=== PATIENT | female | born 1985 | race Caucasian/White ===

== ENCOUNTER 2019-04-25 14:20 | Inpatient (IN) ==
[2019-04-25] MEDS ORDERED: IOPAMIDOL 100 ML BOTTLE IV ONE (14:21)
[2019-04-25] MEDS ORDERED: 0.9 % SODIUM CHLORIDE 1,000 ML IV ONE (14:22)
--- NOTE | 2019-04-25 14:50 | Emergency Department Note ---
Abdominal Pain HPI - General Chief Complaint: Abdominal Pain Stated Complaint: Abdominal Time Seen by Provider: 04/25/19 14:21 Mode of arrival: ambulatory - History of Present Illness HPI Narrative: Patient is a 33-year-old female that presents to the emergency department with complaint of right lower quadrant abdominal pain that occurred yesterday at 1900 when she was at work. She reports that the pain came on suddenly and she describes this pain as sharp. She has increased pain with ambulation. Last night after the pain began she developed a fever of 101.9. She reports that her pulse was 115 and blood pressure is 96/69. She took a dose of Maalox and milk of magnesia last night, but reports that this did not help with anything. She reports her last bowel movement was 2 days ago and was soft and brown. She does have some slight nausea but has not had any vomiting. She does not have any shortness of breath, chest pain, or difficulty breathing. She was seen earlier today by minor care and a urinalysis was done and apparently this was normal. - Related Data Home Medications Medication Instructions Recorded Confirmed levothyroxine 50 mcg capsule 50 mcg PO QDAY 10/18/18 04/25/19 etodolac 400 mg tablet 400 mg PO Q8HP PRN tab 04/25/19 04/25/19 Allergies Allergy/AdvReac Type Severity Reaction Status Date / Time cephalexin Allergy Intermediate rash Verified 04/25/19 13:36 penicillin G Allergy Intermediate Hives Verified 04/25/19 13:36 Review of Systems All systems ED: reviewed and negative except as stated. Abdominal Pain PMH - Past Medical History Medical history: Reports: no medical history - Social History Smoking status: Former smoker Alcohol use: Reports: Unknown Drug use: Reports: unknown Physical Exam Limitations: no limitations General appearance: alert, in no apparent distress Head: atraumatic, normocephalic Eye: Present: normal appearance, PERRL ENT: Present: normal oropharynx, mucous membranes moist Neck: Present: normal inspection, full ROM Respiratory: Present: normal lung sounds bilaterally. Absent: respiratory distress, rales/crackles, wheezes, stridor, accessory muscle use, prolonged expiratory phase Cardiovascular: Present: regular rate, normal rhythm. Absent: systolic murmur, diastolic murmur Abdominal: Present: soft, tenderness (right lower quadrant and left lower quadrant), rebound, normal bowel sounds, tenderness at [place]Bur[place]'s Point. Absent: distention, guarding, rigidity, psoas sign, obturator sign, pulsatile mass Abdominal tenderness: Present: RLQ, LLQ, moderate Extremities: Present: normal inspection, full ROM, normal capillary refill. Absent: tenderness, pedal edema, pretibial edema, calf tenderness Back: Present: normal inspection, full ROM. Absent: CVA tenderness (R), CVA tenderness (L) Neurological: Present: alert, oriented X3 Skin: Present: warm, dry, intact, normal color Course - Reevaluation(s) Time: 15:07 (hCG testing was negative. Normal creatinine level. Proceeding with CT scan of the abdomen and pelvis with contrast for further evaluation. Patient is resting comfortably and receiving IV fluids at this time.) Time: 16:03 (spoke with Dr. Angeles over the phone about CT report and the leukocytosis along with the assessment findings. Dr. Angeles would like to have the patient admitted and he will see her on the floor.) Vital Signs Temperature 98.4 F 04/25/19 14:20 Pulse Rate 86 04/25/19 14:20 Respiratory Rate 16 04/25/19 14:20 Blood Pressure 127/84 04/25/19 14:20 Pulse Oximetry (%) 99 04/25/19 14:20 Temperature 98.4 F 04/25/19 14:20 Pulse Rate 86 04/25/19 14:20 Respiratory Rate 20 04/25/19 15:16 Blood Pressure 130/87 04/25/19 15:16 Pulse Oximetry (%) 99 04/25/19 14:20 Abdominal Pain - [facility] Narrative Medical decision making narrative: Patient has leukocytosis with white count of 14.3. She was given 1 L of normal saline here in the emergency department. CT scan of the abdomen and pelvis was completed that shows cecal diverticulitis. Called and spoke with Dr. Angeles who is inhalation therapy teacher and Dr. Angeles accepts the patient to be admitted and he will see the patient for. She was given a dose of morphine here in the emergency department for pain and will be given Levaquin 750 mg IV and ordered metronidazole 500 mg IV. Patient will be admitted to [facility]. - Lab Data Result diagrams: 04/25/19 14:42 04/25/19 14:42 Lab Results 04/25/19 04/25/19 Range/Units 14:42 14:42 WBC 14.3 H (4.5-11.0) K/mcL RBC 4.32 (4.00-5.20) M/mcL Hgb 13.3 (12.0-15.0) g/dL Hct 38.9 (36.0-48.0) % POC Hct 36.0 (36.0-48.0) % MCV 90.0 (80.0-100.0) fL MCH 30.8 (26.0-34.0) pg MCHC 34.2 (31.0-36.0) g/dL RDW 11.5 (11.5-14.5) % Plt Count 304 (140-440) K/mcL MPV 6.5 L (7.4-10.4) fL Gran % 80.1 H (38.0-78.0) % Lymph % (Auto) 14.2 L (15.5-49.0) % [place]roy[place] % (Auto) 5.5 (1.0-12.0) % Eos % (Auto) 0.1 (0.0-7.0) % Baso % (Auto) 0.1 (0.0-2.0) % Gran # 11.5 H (1.8-8.0) K/mcL Lymph # (Auto) 2.0 (1.5-4.8) K/mcL [place] # (Auto) 0.8 (0.1-0.9) K/mcL Eos # (Auto) 0 (0.0-0.7) K/mcL Baso # (Auto) 0 (0.0-0.3) K/mcL ESR 10 (0-20) mm/hr POC Sodium 137 (133-145) mmol/L Sodium 137 (133-145) mmol/L POC Potassium 4.0 (3.3-5.1) mmol/L Potassium 4.1 (3.3-5.1) mmol/L POC Chloride 103 (96-108) mmol/L Chloride 100 (96-108) mmol/L Carbon Dioxide 25 (22-30) mmol/L POC Total CO2 25 (22-30) mmol/L Anion Gap 12.0 (8-16) POC BUN 11 (6-20) mg/dl BUN 12 (6-20) mg/dl Creatinine 0.8 (0.6-1.1) mg/dl POC Creatinine 0.9 (0.6-1.1) mg/dl GFR Calculation 96 Glucose 97 (70-105) mg/dL POC Glucose 96 (70-105) mg/dL Calcium 9.5 (8.6-10.4) mg/dl POC WB Ioniz Calcium 1.16 (1.16-1.32) mmol/L Total Bilirubin 0.8 (0.0-1.0) mg/dL AST 17 (0-37) U/l ALT 21 (0-40) U/l Alkaline Phosphatase 64 (39-117) U/L Total Protein 7.2 (5.9-8.4) gm/dL Albumin 4.5 (3.2-5.2) gm/dL Globulin 2.7 (2.2-3.7) gm/dL Albumin/Globulin Ratio 1.7 (1.0-2.3) Lipase 10 (7-60) U/L - Radiology Data Ordering Physician: Aryan Lea Date of Service: 04/25/19 Procedure(s): CT abdomen pelvis w con Accession Number(s): [id number] CLINICAL INFORMATION: Right lower quadrant pain. Fever TECHNIQUE: Axial images through the abdomen and pelvis. Intravenous contrast material was administered. Oral contrast material was not given COMPARISON: None. FINDINGS: Appendix, colon: Appendix is normal. Appendix measures 6 mm in cross-sectional diameter. There is no appendiceal enlargement. No evidence for appendicitis. There is no appendicolith. There is inflammatory change surrounding the cecum and proximal ascending colon. There is a focal density consistent with a cecal diverticulum. This appearance is consistent with cecal diverticulitis. There is no focal abscess. There is no pneumoperitoneum. No pathologic adenopathy. There is no free pelvic fluid. Colon is otherwise negative. Transverse colon, descending colon, sigmoid colon, rectum are negative. No significant diverticulosis. Lung bases: Lung bases are negative. No focal infiltrate. No pleural fluid. There is no pericardial fluid. Liver: Negative. No significant abnormality. No evidence for cirrhosis. No intra-abdominal abscess. There is a single 5 mm low-density abnormality in the left lobe of the liver. This is probably a benign cyst. Gallbladder, biliary colon probable noncalcified gallstones. No gallbladder wall thickening. No pericholecystic fluid. No dilated bile ducts. Spleen: Negative. No splenomegaly. Normal enhancement splenic portal veins. Pancreas: Negative. No pancreatitis. No pancreatic mass. No pancreatic duct dilatation Adrenal glands: Negative Kidneys, ureters, bladder: Kidneys are negative. No solid or cystic mass. There is no hydronephrosis. No hydroureter. No obstructing or nonobstructing calculi. There are no bladder stones. Stomach and small bowel: No mechanical small bowel obstruction. Stomach and duodenum are negative. Vascular: No abdominal aortic aneurysm. Celiac trunk and superior mesenteric artery are normal. Inferior mesenteric artery is normally opacified Lymphatic: No retroperitoneal adenopathy. No mesenteric adenopathy. Reproductive: Uterus is anteflexed. There is a probable 3.5 cm right ovarian or adnexal cyst. This appears septated. Follow-up ultrasound recommended. Mesenteric, peritoneal: No free intraperitoneal fluid. No pneumoperitoneum. No biliary or portal venous gas. No pneumatosis. There is no intra-abdominal abscess Musculoskeletal: Normal lumbar spine. Sacrum and pelvis are negative. Hips are negative. IMPRESSION: 1. Negative appendix 2. Findings consistent with cecal diverticulitis Interpreted and Authenticated by: Joseph Jung 04/25/19 Disposition Pt seen by CAMPUS COORDINATOR/PA only: Yes Clinical Impression: Cecal diverticulitis Disposition: Xfer As Inpt ([facility]) Condition: Fair Referrals: Riley oRth ARNP [Primary Care Provider] -
[2019-04-25 14:54] LABS: POC Blood Urea Nitrogen 11 mg/dl (6-20); POC CO2 25 mmol/L (22-30); POC Calcium, Ionized 1.16 mmol/L (1.16-1.32); POC Chloride 103 mmol/L (96-108); POC Creatinine 0.9 mg/dl (0.6-1.1); POC Glucose, Random 96 mg/dL (70-105); POC Sodium 137 mmol/L (133-145)
[2019-04-25 15:19] LABS: Basophils # (Auto) 0 K/mcL (0.0-0.3); Basophils % (Auto) 0.1 % (0.0-2.0); Eosinophils # (Auto) 0 K/mcL (0.0-0.7); Eosinophils % (Auto) 0.1 % (0.0-7.0); Granulocytes % (Auto) 80.1 % (38.0-78.0); Hematocrit 38.9 % (36.0-48.0); Hemoglobin 13.3 g/dL (12.0-15.0); Lymphocytes % (Auto) 14.2 % (15.5-49.0); Mean Corpuscular HGB Conc 34.2 g/dL (31.0-36.0); Mean Platelet Volume 6.5 fL (7.4-10.4); Monocytes # (Auto) 0.8 K/mcL (0.1-0.9); Monocytes % (Auto) 5.5 % (1.0-12.0); Platelet Count 304 K/mcL (140-440); RBC 4.32 M/mcL (4.00-5.20); Red Cell Distribution Width 11.5 % (11.5-14.5); WBC 14.3 K/mcL (4.5-11.0)
[2019-04-25 15:32] LABS: ALT/SGPT 21 U/l (0-40); AST/SGOT 17 U/l (0-37); Albumin 4.5 gm/dL (3.2-5.2); Albumin/Globulin Ratio 1.7 (1.0-2.3); Alkaline Phosphatase 64 U/L (39-117); Bilirubin,Total 0.8 mg/dL (0.0-1.0); Blood Urea Nitrogen 12 mg/dl (6-20); Calcium 9.5 mg/dl (8.6-10.4); Carbon Dioxide 25 mmol/L (22-30); Chloride 100 mmol/L (96-108); Globulin 2.7 gm/dL (2.2-3.7); Glomerular Filtration Rate 96; Glucose 97 mg/dL (70-105)
[2019-04-25 15:47] LABS: Erythrocyte Sedimentation Rate 10 mm/hr (0-20)
--- NOTE | 2019-04-25 15:49 | Cat Scan Report ---
CLINICAL INFORMATION: Right lower quadrant pain. Fever TECHNIQUE: Axial images through the abdomen and pelvis. Intravenous contrast material was administered. Oral contrast material was not given COMPARISON: None. FINDINGS: Appendix, colon: Appendix is normal. Appendix measures 6 mm in cross-sectional diameter. There is no appendiceal enlargement. No evidence for appendicitis. There is no appendicolith. There is inflammatory change surrounding the cecum and proximal ascending colon. There is a focal density consistent with a cecal diverticulum. This appearance is consistent with cecal diverticulitis. There is no focal abscess. There is no pneumoperitoneum. No pathologic adenopathy. There is no free pelvic fluid. Colon is otherwise negative. Transverse colon, descending colon, sigmoid colon, rectum are negative. No significant diverticulosis. Lung bases: Lung bases are negative. No focal infiltrate. No pleural fluid. There is no pericardial fluid. Liver: Negative. No significant abnormality. No evidence for cirrhosis. No intra-abdominal abscess. There is a single 5 mm low-density abnormality in the left lobe of the liver. This is probably a benign cyst. Gallbladder, biliary colon probable noncalcified gallstones. No gallbladder wall thickening. No pericholecystic fluid. No dilated bile ducts. Spleen: Negative. No splenomegaly. Normal enhancement splenic portal veins. Pancreas: Negative. No pancreatitis. No pancreatic mass. No pancreatic duct dilatation Adrenal glands: Negative Kidneys, ureters, bladder: Kidneys are negative. No solid or cystic mass. There is no hydronephrosis. No hydroureter. No obstructing or nonobstructing calculi. There are no bladder stones. Stomach and small bowel: No mechanical small bowel obstruction. Stomach and duodenum are negative. Vascular: No abdominal aortic aneurysm. Celiac trunk and superior mesenteric artery are normal. Inferior mesenteric artery is normally opacified Lymphatic: No retroperitoneal adenopathy. No mesenteric adenopathy. Reproductive: Uterus is anteflexed. There is a probable 3.5 cm right ovarian or adnexal cyst. This appears septated. Follow-up ultrasound recommended. Mesenteric, peritoneal: No free intraperitoneal fluid. No pneumoperitoneum. No biliary or portal venous gas. No pneumatosis. There is no intra-abdominal abscess Musculoskeletal: Normal lumbar spine. Sacrum and pelvis are negative. Hips are negative. IMPRESSION: 1. Negative appendix 2. Findings consistent with cecal diverticulitis Interpreted and Authenticated by: Joseph Jung 04/25/19
[2019-04-25] MEDS ORDERED: metroNIDAZOLE 500 MG/100 ML BAG IV ONE (16:13)
[2019-04-25] MEDS ORDERED: LEVOFLOXACIN 750 MG/150 ML BAG IV ONE (16:13)
[2019-04-25] MEDS ORDERED: LEVOFLOXACIN 750 MG/150 ML BAG IV SCH (16:15)
[2019-04-25] MEDS: 0.9 % SODIUM CHLORIDE 1,000 ML IV SCH ×2 (17:47→21:02)
--- NOTE | 2019-04-25 18:59 | General Surg History&Physical ---
History of Present Illness Patient information: Note initiated : 04/25/19 at 6:56 pm Service Date, if different from initiated Date: [] Patient: Aletha Landry 33 y/o F admitted on 04/25/19 for Abdominal. Chief Complaint: [] HPI: Ms. Landry is a 33 year old F admitted with acute abdominal pain and probable right sided diverticulitis. The patient had onset of severe abdominal pain about 1900 hrs. YESTERDAY. IT WAS PRIMARILY ON THE RIGHT SIDE. AND THE SUPRAPUBIC AREA AND LEFT LOWER QUADRANT. SHE HAD NAUSEA WITH VOMITING. STATES THAT SHE NOTED THAT HER HEART RATE WAS UP AND HER TEMPERATURE WAS 101.9. SHE TRIED SOME [id number] MEDICATIONS, WHICH DID NOT IMPROVE AND FINALLY CAME TO [facility] EARLIER TODAY. BECAUSE OF HER HISTORY, SHE WAS TRANSFERRED TO THE EMERGENCY ROOM WHERE CT OF THE ABDOMEN WAS DONE. IT SHOWS A NORMAL SIZE APPENDIX, WHICH IS CLEARLY DEFINED WITH AIR IN THE APPENDIX. SHE HOWEVER HAS THICKENING OF THE CECUM AND ASCENDING COLON SUGGESTIVE OF CECAL DIVERTICULITIS. Patient has been admitted and started on IV antibiotics. Review of Systems All systems PM: reviewed and no additional remarkable complaints except as stated (negative except as noted in HPI and below) - EENT Nose, mouth and throat: neck pain Past History Past medical history: Hypothyroidism Past surgical history: 1. Breast augmentation. Abdominoplasty Past family history: Mother age 57, alive and well. Father age 63 with hypertension Past social history: Her former smoker. Drinks occasional wine. Denies drug use Medications and Allergies Home Medications Medication Instructions Recorded Confirmed Type levothyroxine 50 mcg capsule 50 mcg PO QDAY 10/18/18 04/25/19 History etodolac 400 mg tablet 400 mg PO BID tab 04/25/19 04/25/19 History Allergies Allergy/AdvReac Type Severity Reaction Status Date / Time cephalexin Allergy Intermediate rash Verified 04/25/19 13:36 penicillin G Allergy Intermediate Hives Verified 04/25/19 17:06 Exam Temp Pulse Resp BP Pulse Ox 100.9 F H 101 H 16 152/95 99 04/25/19 17:09 04/25/19 17:09 04/25/19 17:09 04/25/19 17:09 04/25/19 17:09 - General physical appearance well developed, well nourished, no distress - Eyes PERRL, normal ocular movement - ENT normal pinna, normal nares, normal mucosa, no hearing loss, no congestion - Head Head exam IM: Present: atraumatic, normocephalic - Neck no masses, no bruits, trachea midline, no lymphadenopathy, no venous distension - Cardiovascular Cardiovascular exam IM: Present: normal rate and rhythm, RRR, +S1, +S2. Absent: JVD, tachycardia - Respiratory normal expansion, normal respiratory effort, clear to percussion, clear to auscultation - Abdomen Abdomen: Present: soft, tender (nondistended; hypoactive bowel sounds; tenderness with guarding right lower quadrant and hypogastric; no palpable mass), bowel sounds Hernia: Present: none - Genitourinary Present: normal external genitalia - Integumentary Present: no rash, no growths, no abnormal pigmentation - Neurologic Present: normal coordination, normal sensation - Musculoskeletal Present: normal gait, normal posture - Psychiatric Present: oriented to time, oriented to person, oriented to place, speech is normal, memory intact Assessment and Plan (1) Cecal diverticulitis Levaquin 750 mg IV daily. Metronidazole 500 mg IV every 6 hours Bowel rest except for ice chips and popsicles. Daily CBC. Follow-up CT in 72-96 hours. Based on clinical presentation Status: Acute
[2019-04-25] MEDS ORDERED: PROMETHAZINE 25 MG/ML VIAL IV PRN (19:51)
[2019-04-25] MEDS ORDERED: ONDANSETRON 4 MG/2 ML VIAL ONE (20:04)
[2019-04-25] MEDS: HYDROmorphone 2 MG/ML VIAL IV PRN (20:11)
[2019-04-25] MEDS: metroNIDAZOLE 500 MG/100 ML BAG IV SCH (23:35)
[2019-04-26] MEDS: HYDROmorphone 2 MG/ML VIAL IV PRN ×2 (00:47→13:11)
--- NOTE | 2019-04-26 01:11 | Emergency Department Note ---
ED Note Addendum Note Addendum: I saw this patient with mild Lea PRINCIPAL ARCHAEOLOGIST. I agree with his evaluation management documentation. I also examined the patient myself and note that she does have right lower quadrant tenderness consistent with appendicitis. However her CT scan showed cecal diverticulitis which is what of rare diagnoses. Case w as discussed with Aryan and subsequently he discussed with Dr. Jaguar Angeles. Patient will be admitted for further surgical care
[2019-04-26] MEDS: ONDANSETRON 4 MG/2 ML VIAL IV PRN ×2 (01:13→17:46)
[2019-04-26] MEDS: metroNIDAZOLE 500 MG/100 ML BAG IV SCH ×3 (05:34→18:49)
[2019-04-26] MEDS: 0.9 % SODIUM CHLORIDE 1,000 ML IV SCH ×2 (05:34→13:13)
[2019-04-26 05:48] LABS: Hematocrit 35.2 % (36.0-48.0); Hemoglobin 11.8 g/dL (12.0-15.0); Mean Corpuscular HGB Conc 33.7 g/dL (31.0-36.0); Mean Platelet Volume 6.9 fL (7.4-10.4); Platelet Count 249 K/mcL (140-440); RBC 3.82 M/mcL (4.00-5.20); Red Cell Distribution Width 11.8 % (11.5-14.5); WBC 11.7 K/mcL (4.5-11.0)
[2019-04-26 06:33] LABS: ALT/SGPT 15 U/l (0-40); AST/SGOT 12 U/l (0-37); Albumin 3.8 gm/dL (3.2-5.2); Albumin/Globulin Ratio 1.5 (1.0-2.3); Alkaline Phosphatase 55 U/L (39-117); Bilirubin,Direct < 0.2 mg/dL (0.0-0.3); Bilirubin,Total 0.7 mg/dL (0.0-1.0); Blood Urea Nitrogen 10 mg/dl (6-20); Calcium 8.7 mg/dl (8.6-10.4); Carbon Dioxide 21 mmol/L (22-30); Chloride 104 mmol/L (96-108); Globulin 2.6 gm/dL (2.2-3.7); Glomerular Filtration Rate 96; Glucose 92 mg/dL (70-105); Lactate Dehydrogenase 162 U/L (94-250); Phosphorous 2.5 mg/dL (2.7-4.5); T4 (Thyroxine) 6.4 ug/dl (5.0-12.0); Thyroid Stimulating Hormone 2.98 uIU/ml (0.27-5.01); Triglycerides 52 mg/dl (<150)
[2019-04-26 07:07] LABS: Band Neutrophils % 3 % (0-10); Lymphocytes % 15 % (15-49); Monocytes % (Manual) 6 % (1-12); Platelet Estimate NORMAL (NORMAL); RBC Morphology NORMAL (NORMAL); Reactive Lymphocytes 1 % (0-2); Segmented Neutrophils % 75 % (38-78)
[2019-04-26] MEDS: LEVOFLOXACIN 750 MG/150 ML BAG IV SCH (08:08)
[2019-04-26] MEDS: ACETAMINOPHEN 1,000 MG/100 ML BOTTLE IV PRN ×2 (09:10→17:46)
--- NOTE | 2019-04-26 14:14 | General Surgery Progress Note ---
Subjective Patient reports: feels better, pain is less, tolerating liquids well, flatus, no bowel movement, afebrile Narrative: Note initiated : 04/26/19 at 2:12 pm Service Date, if different from initiated Date: [] Patient: Aletha Landry 33 y/o F admitted on 04/25/19 for Abdominal. Chief Complaint: [Patient is stable. She has not had any temperature elevation since admission. She denies nausea. Her right lower quadrant and hypogastric pain is improved. She has had flatus but no bowel movement. White blood count 11.7, hemoglobin 11.8, hematocrit 35.2.] Objective Temp Pulse Resp BP Pulse Ox 98.3 F 82 20 106/67 98 04/26/19 11:39 04/26/19 06:54 04/26/19 11:39 04/26/19 11:39 04/26/19 11:39 - Additional Data Intake & Output - Last 24 hours: Intake & Output 04/24/19 04/25/19 04/26/19 04/27/19 05:59 05:59 05:59 05:59 Intake Total 2200 1450 Output Total 450 Balance 1750 1450 Weight 155 lb 3.2 oz - General physical appearance well developed, well nourished, no distress - Eyes PERRL, normal ocular movement - ENT normal pinna, normal nares, normal mucosa, no hearing loss, no congestion - Neck no masses, no bruits, trachea midline, no lymphadenopathy, no venous distension - Respiratory normal expansion, normal respiratory effort, clear to auscultation - Cardiovascular Cardiovascular exam: Present: normal rate and rhythm, RRR, +S1, +S2. Absent: JVD, tachycardia - Abdomen tender (mild tenderness right lower quadrant and hypogastrium, but improved from last evening; active bowel sounds), bowel sounds (present), surgical scars (none), masses (none) - Integumentary no rash, no growths, no abnormal pigmentation - Neurologic normal coordination, normal sensation - Musculoskeletal normal gait, normal posture - Psychiatric oriented to time, oriented to person, oriented to place, speech is normal, memory intact - Labs 04/26/19 04:00 04/26/19 04:00 Diabetes panel 04/25/19 04/26/19 Range/Units 14:42 04:00 Sodium 137 138 (133-145) mmol/L Potassium 4.1 3.9 (3.3-5.1) mmol/L Chloride 100 104 (96-108) mmol/L Carbon Dioxide 25 21 L (22-30) mmol/L BUN 12 10 (6-20) mg/dl Creatinine 0.8 0.8 (0.6-1.1) mg/dl Glucose 97 92 (70-105) mg/dL Calcium 9.5 8.7 (8.6-10.4) mg/dl AST 17 12 (0-37) U/l ALT 21 15 (0-40) U/l Alkaline Phosphatase 64 55 (39-117) U/L Total Protein 7.2 6.4 (5.9-8.4) gm/dL Albumin 4.5 3.8 (3.2-5.2) gm/dL Triglycerides 52 (<150) mg/dl Thyroid panel 04/26/19 Range/Units 04:00 TSH 2.98 (0.27-5.01) uIU/ml Thyroxine (T4) 6.4 (5.0-12.0) ug/dl Calcium panel 04/25/19 04/26/19 Range/Units 14:42 04:00 Calcium 9.5 8.7 (8.6-10.4) mg/dl Phosphorus 2.5 L (2.7-4.5) mg/dL Albumin 4.5 3.8 (3.2-5.2) gm/dL Pituitary panel 04/25/19 04/26/19 Range/Units 14:42 04:00 Sodium 137 138 (133-145) mmol/L Potassium 4.1 3.9 (3.3-5.1) mmol/L Chloride 100 104 (96-108) mmol/L Carbon Dioxide 25 21 L (22-30) mmol/L BUN 12 10 (6-20) mg/dl Creatinine 0.8 0.8 (0.6-1.1) mg/dl Glucose 97 92 (70-105) mg/dL Calcium 9.5 8.7 (8.6-10.4) mg/dl TSH 2.98 (0.27-5.01) uIU/ml Thyroxine (T4) 6.4 (5.0-12.0) ug/dl Adrenal panel 04/25/19 04/26/19 Range/Units 14:42 04:00 Sodium 137 138 (133-145) mmol/L Potassium 4.1 3.9 (3.3-5.1) mmol/L Chloride 100 104 (96-108) mmol/L Carbon Dioxide 25 21 L (22-30) mmol/L BUN 12 10 (6-20) mg/dl Creatinine 0.8 0.8 (0.6-1.1) mg/dl Glucose 97 92 (70-105) mg/dL Calcium 9.5 8.7 (8.6-10.4) mg/dl Total Bilirubin 0.8 0.7 (0.0-1.0) mg/dL AST 17 12 (0-37) U/l ALT 21 15 (0-40) U/l Alkaline Phosphatase 64 55 (39-117) U/L Total Protein 7.2 6.4 (5.9-8.4) gm/dL Albumin 4.5 3.8 (3.2-5.2) gm/dL Assessment and Plan (1) Cecal diverticulitis Status: Acute Assessment and plan: Patient is clinically improved. Will allow to have clear liquids. We will continue present antibiotic treatment Current Visit: Yes - Time Spent With Patient Total time spent is greater than 50% in coordination of care (as documented) at patient's floor/unit and/or counseling patient:
[2019-04-27] MEDS: metroNIDAZOLE 500 MG/100 ML BAG IV SCH ×5 (00:11→23:46)
[2019-04-27] MEDS: 0.9 % SODIUM CHLORIDE 1,000 ML IV SCH ×3 (00:15→12:28)
[2019-04-27] MEDS: ACETAMINOPHEN 1,000 MG/100 ML BOTTLE IV PRN ×2 (01:40→13:47)
[2019-04-27 06:51] LABS: Hematocrit 31.8 % (36.0-48.0); Hemoglobin 10.8 g/dL (12.0-15.0); Mean Cell Volume 91.7 fL (80.0-100.0); Mean Corpuscular HGB Conc 34.1 g/dL (31.0-36.0); Mean Platelet Volume 6.8 fL (7.4-10.4); Platelet Count 227 K/mcL (140-440); RBC 3.46 M/mcL (4.00-5.20); Red Cell Distribution Width 11.2 % (11.5-14.5); WBC 10.1 K/mcL (4.5-11.0)
[2019-04-27 07:27] LABS: ALT/SGPT 12 U/l (0-40); AST/SGOT 11 U/l (0-37); Albumin 3.4 gm/dL (3.2-5.2); Albumin/Globulin Ratio 1.4 (1.0-2.3); Alkaline Phosphatase 54 U/L (39-117); Bilirubin,Direct < 0.2 mg/dL (0.0-0.3); Bilirubin,Total 0.5 mg/dL (0.0-1.0); Blood Urea Nitrogen 11 mg/dl (6-20); Calcium 8.5 mg/dl (8.6-10.4); Carbon Dioxide 21 mmol/L (22-30); Chloride 107 mmol/L (96-108); Globulin 2.5 gm/dL (2.2-3.7); Glomerular Filtration Rate 113; Glucose 87 mg/dL (70-105); Lactate Dehydrogenase 150 U/L (94-250); Phosphorous 2.1 mg/dL (2.7-4.5); Triglycerides 53 mg/dl (<150); Uric Acid 3.6 mg/dL (2.5-8.0)
[2019-04-27 09:02] LABS: Band Neutrophils % 3 % (0-10); Eosinophils % (Manual) 1 % (0-7); Lymphocytes % 11 % (15-49); Monocytes % (Manual) 7 % (1-12); Platelet Estimate NORMAL (NORMAL); RBC Morphology NORMAL (NORMAL); Segmented Neutrophils % 78 % (38-78)
[2019-04-27] MEDS: LEVOFLOXACIN 750 MG/150 ML BAG IV SCH (09:13)
[2019-04-27] MEDS ORDERED: POTASSIUM PHOSPHATE 40 MEQ in DEXTROSE 5% IN WATER 500 ML IV ONE (10:50)
[2019-04-27] MEDS ORDERED: BISACODYL 10 MG SUPP.RECT PR PRN (10:57)
--- NOTE | 2019-04-27 12:51 | General Surgery Progress Note ---
Subjective Patient reports: feels better, pain is less, tolerating liquids well, flatus, diarrhea, fever Narrative: Note initiated : 04/27/19 at 12:48 pm Service Date, if different from initiated Date: [] Patient: Aletha Landry 33 y/o F admitted on 04/25/19 for Abdominal. Chief Complaint: [patient is stable and improved. She has low-grade temperature elevation in the 99 range. Her abdominal pain is significantly improved. Her white blood count is 10.1. She is having multiple liquid bowel movements.] Objective Temp Pulse Resp BP Pulse Ox 97.7 F 74 18 125/81 99 04/27/19 12:00 04/27/19 12:00 04/27/19 12:00 04/27/19 12:00 04/27/19 12:00 - Additional Data Intake & Output - Last 24 hours: Intake & Output 04/25/19 04/26/19 04/27/19 04/28/19 05:59 05:59 05:59 05:59 Intake Total 2200 2995 1440 Output Total 450 2400 1150 Balance 1750 595 290 Weight 155 lb 3.2 oz 156 lb 3.2 oz - General physical appearance well developed, well nourished, no distress, moderate pain - Eyes PERRL, normal ocular movement - ENT normal pinna, normal nares, normal mucosa, no hearing loss, no congestion - Neck no masses, no bruits, trachea midline, no lymphadenopathy, no venous distension - Respiratory normal expansion, normal respiratory effort, clear to auscultation - Cardiovascular Cardiovascular exam: Present: normal rate and rhythm, RRR, +S1, +S2. Absent: JVD, tachycardia - Abdomen tender (, mild tenderness left lower quadrant), bowel sounds (present), surgical scars (none), masses (none) - Integumentary no rash, no growths, no abnormal pigmentation - Neurologic normal coordination, normal sensation - Musculoskeletal normal gait, normal posture - Psychiatric oriented to time, oriented to person, oriented to place, speech is normal, memory intact - Labs 04/27/19 04:28 04/27/19 04:28 Diabetes panel 04/27/19 Range/Units 04:28 Sodium 138 (133-145) mmol/L Potassium 3.8 (3.3-5.1) mmol/L Chloride 107 (96-108) mmol/L Carbon Dioxide 21 L (22-30) mmol/L BUN 11 (6-20) mg/dl Creatinine 0.7 (0.6-1.1) mg/dl Glucose 87 (70-105) mg/dL Calcium 8.5 L (8.6-10.4) mg/dl AST 11 (0-37) U/l ALT 12 (0-40) U/l Alkaline Phosphatase 54 (39-117) U/L Total Protein 5.9 (5.9-8.4) gm/dL Albumin 3.4 (3.2-5.2) gm/dL Triglycerides 53 (<150) mg/dl Calcium panel 04/27/19 Range/Units 04:28 Calcium 8.5 L (8.6-10.4) mg/dl Phosphorus 2.1 L (2.7-4.5) mg/dL Albumin 3.4 (3.2-5.2) gm/dL Pituitary panel 04/27/19 Range/Units 04:28 Sodium 138 (133-145) mmol/L Potassium 3.8 (3.3-5.1) mmol/L Chloride 107 (96-108) mmol/L Carbon Dioxide 21 L (22-30) mmol/L BUN 11 (6-20) mg/dl Creatinine 0.7 (0.6-1.1) mg/dl Glucose 87 (70-105) mg/dL Calcium 8.5 L (8.6-10.4) mg/dl Adrenal panel 04/27/19 Range/Units 04:28 Sodium 138 (133-145) mmol/L Potassium 3.8 (3.3-5.1) mmol/L Chloride 107 (96-108) mmol/L Carbon Dioxide 21 L (22-30) mmol/L BUN 11 (6-20) mg/dl Creatinine 0.7 (0.6-1.1) mg/dl Glucose 87 (70-105) mg/dL Calcium 8.5 L (8.6-10.4) mg/dl Total Bilirubin 0.5 (0.0-1.0) mg/dL AST 11 (0-37) U/l ALT 12 (0-40) U/l Alkaline Phosphatase 54 (39-117) U/L Total Protein 5.9 (5.9-8.4) gm/dL Albumin 3.4 (3.2-5.2) gm/dL Assessment and Plan (1) Cecal diverticulitis Status: Acute Assessment and plan: Patient is clinically improved.. We will continue present antibiotic treatment Advanced to full liquid. CT of abdomen and pelvis with IV contrast in the morning. Saline lock IV Current Visit: Yes - Time Spent With Patient Total time spent is greater than 50% in coordination of care (as documented) at patient's floor/unit and/or counseling patient:
[2019-04-27] MEDS: ONDANSETRON 4 MG/2 ML VIAL IV PRN (13:11)
[2019-04-28] MEDS: metroNIDAZOLE 500 MG/100 ML BAG IV SCH ×4 (05:54→23:52)
[2019-04-28 06:38] LABS: Hematocrit 34.2 % (36.0-48.0); Hemoglobin 11.6 g/dL (12.0-15.0); Mean Cell Volume 90.9 fL (80.0-100.0); Mean Platelet Volume 6.9 fL (7.4-10.4); Platelet Count 273 K/mcL (140-440); RBC 3.76 M/mcL (4.00-5.20); Red Cell Distribution Width 11.4 % (11.5-14.5); WBC 9.7 K/mcL (4.5-11.0)
[2019-04-28 06:41] LABS: Blood Urea Nitrogen 7 mg/dl (6-20); Calcium 9.2 mg/dl (8.6-10.4); Carbon Dioxide 23 mmol/L (22-30); Chloride 103 mmol/L (96-108); Glomerular Filtration Rate 96; Glucose 85 mg/dL (70-105)
[2019-04-28] MEDS: ONDANSETRON 4 MG/2 ML VIAL IV PRN ×2 (06:47→19:39)
[2019-04-28 08:03] LABS: Lymphocytes % 24 % (15-49); Monocytes % (Manual) 9 % (1-12); Platelet Estimate NORMAL (NORMAL); RBC Morphology NORMAL (NORMAL); Segmented Neutrophils % 67 % (38-78)
[2019-04-28] MEDS ORDERED: IOPAMIDOL 100 ML BOTTLE IV ONE (08:33)
--- NOTE | 2019-04-28 08:52 | Cat Scan Report ---
CLINICAL INFORMATION: Follow up cecal diverticulitis TECHNIQUE: Axial postcontrast enhanced images through the abdomen and pelvis. Sagittal and coronal reformatted images. Oral contrast material was given COMPARISON: Previous examination dated 04/25/2019 FINDINGS: There continues to be abnormality of the cecum. This is essentially unchanged. There is pericecal inflammatory change. There is marked cecal wall thickening. This may be due to an inflammatory process but cecal neoplasm cannot be excluded despite this patient's young age. Appendix remains normal. Follow-up colonoscopy is recommended. There are right lower quadrant lymph nodes. There is no focal fluid collection. No free intraperitoneal fluid. Small bowel is negative. There is no mechanical small bowel obstruction. There is contrast material within the colon. Lung bases: Negative. No focal infiltrate or mass. There is no pleural fluid. No pericardial fluid Liver: Negative. No focal mass. No evidence for hepatic metastasis. No hepatic abscess Gallbladder, biliary: No calcified gallstones. No dilated bile ducts. Spleen: Negative. No splenomegaly. Normal enhancement of the splenic veins Pancreas: Negative. No pancreatic mass. No peripancreatic abnormality. Adrenal glands: Negative. No adrenal nodule Kidneys: Negative. No solid or cystic renal mass. No hydronephrosis. Vascular: Normal. No calcified plaque. No abdominal aortic aneurysm. Reproductive: Uterus is anteflexed. No adnexal mass. Bilateral ovarian cysts Musculoskeletal: Normal lumbar spine. Sacrum and pelvis are negative IMPRESSION: 1. Abnormal cecum. There is a cecal inflammatory change and significant cecal wall thickening. Findings may be due to inflammatory disease but malignancy is not excluded. Colonoscopy or arthroscopy recommended. 2. Mild adenopathy in the right lower quadrant 3. No mechanical small bowel obstruction. Appendix is negative Interpreted and Authenticated by: Joseph Jung 04/28/19
[2019-04-28] MEDS: LEVOFLOXACIN 750 MG/150 ML BAG IV SCH (10:19)
[2019-04-28] MEDS ORDERED: 0.9 % SODIUM CHLORIDE 250 ML IV SCH (15:00)
--- NOTE | 2019-04-28 15:00 | General Surgery Progress Note ---
Subjective Patient reports: feels better, pain is less, tolerating liquids well, flatus, bowel movement, afebrile Narrative: Note initiated : 04/28/19 at 2:59 pm Service Date, if different from initiated Date: [] Patient: Aletha Landry 33 y/o F admitted on 04/25/19 for Abdominal Pain. Chief Complaint: [Patient states that she feels better however she continues to have significant discomfort in the right quadrant. She is afebrile and her white count is 9700. Her hemoglobin has also decreased over the past 2 days. Follow-up CT performed this morning shows a very large mass involving and wall of the cecum and ascending colon and is not suggestive of diverticulitis, but neoplastic. I reviewed the CT findings with the radiologist, Dr. OROURKE, who agrees that the lesion is ominous for possible neoplasm. Based on clinical findings and history it is felt that the patient should have laparotomy with removal of this mass in the right colon. The patient is informed of this and she and her were shown the x-rays. She agrees to proceed with surgery tomorrow. ] Objective Temp Pulse Resp BP Pulse Ox 98.2 F 72 16 134/89 99 04/28/19 12:00 04/28/19 12:00 04/28/19 12:00 04/28/19 12:00 04/28/19 12:00 - Additional Data Intake & Output - Last 24 hours: Intake & Output 04/26/19 04/27/19 04/28/19 04/29/19 05:59 05:59 05:59 05:59 Intake Total 2200 3095 3400 250 Output Total 450 2400 4150 Balance 1750 695 -750 250 Weight 155 lb 3.2 oz 156 lb 3.2 oz 162 lb 12.8 oz 162 lb 12.8 oz - General physical appearance well developed, well nourished, no distress - Eyes PERRL, normal ocular movement - ENT normal pinna, normal nares, normal mucosa, no hearing loss, no congestion - Respiratory normal expansion, normal respiratory effort, clear to auscultation - Cardiovascular Cardiovascular exam: Present: normal rate and rhythm, RRR, +S1, +S2. Absent: JVD, tachycardia - Abdomen tender (tenderness in right lower quadrant), bowel sounds (present), surgical scars (none), masses (none) - Integumentary no rash, no growths, no abnormal pigmentation - Neurologic normal coordination, normal sensation - Musculoskeletal normal gait, normal posture - Psychiatric oriented to time, oriented to person, oriented to place, speech is normal, memory intact - Labs 04/28/19 04:50 04/28/19 04:50 Diabetes panel 04/28/19 Range/Units 04:50 Sodium 137 (133-145) mmol/L Potassium 3.9 (3.3-5.1) mmol/L Chloride 103 (96-108) mmol/L Carbon Dioxide 23 (22-30) mmol/L BUN 7 (6-20) mg/dl Creatinine 0.8 (0.6-1.1) mg/dl Glucose 85 (70-105) mg/dL Calcium 9.2 (8.6-10.4) mg/dl Calcium panel 04/28/19 Range/Units 04:50 Calcium 9.2 (8.6-10.4) mg/dl Pituitary panel 04/28/19 Range/Units 04:50 Sodium 137 (133-145) mmol/L Potassium 3.9 (3.3-5.1) mmol/L Chloride 103 (96-108) mmol/L Carbon Dioxide 23 (22-30) mmol/L BUN 7 (6-20) mg/dl Creatinine 0.8 (0.6-1.1) mg/dl Glucose 85 (70-105) mg/dL Calcium 9.2 (8.6-10.4) mg/dl Adrenal panel 04/28/19 Range/Units 04:50 Sodium 137 (133-145) mmol/L Potassium 3.9 (3.3-5.1) mmol/L Chloride 103 (96-108) mmol/L Carbon Dioxide 23 (22-30) mmol/L BUN 7 (6-20) mg/dl Creatinine 0.8 (0.6-1.1) mg/dl Glucose 85 (70-105) mg/dL Calcium 9.2 (8.6-10.4) mg/dl Assessment and Plan (1) Cecal diverticulitis Status: Acute Assessment and plan: Patient counseled for laparotomy with right colectomy tomorrow. Type and cross 2 units of packed Check carcinoembryonic antigen. Nothing by mouth after midnight. Continue antibiotics Current Visit: Yes - Time Spent With Patient Total time spent is greater than 50% in coordination of care (as documented) at patient's floor/unit and/or counseling patient:
[2019-04-28] MEDS: 0.9 % SODIUM CHLORIDE 1,000 ML IV SCH ×2 (15:27→23:51)
[2019-04-28 16:33] LABS: INR 1.1 (0.9-1.1); Prothrombin Time 14.3 sec (11.9-14.5)
[2019-04-29] MEDS: metroNIDAZOLE 500 MG/100 ML BAG IV SCH ×4 (05:33→18:28)
[2019-04-29] MEDS: 0.9 % SODIUM CHLORIDE 1,000 ML IV SCH ×4 (07:16→23:55)
[2019-04-29] MEDS ORDERED: IPRATROPIUM/ALBUTEROL 3 ML AMPUL.NEB NEB PRN ×2 (08:00→11:14)
[2019-04-29] MEDS ORDERED: SCOPOLAMINE 1 PATCH PATCH TOPICAL PRN ×2 (08:00→12:43)
[2019-04-29] MEDS ORDERED: MAGNESIUM SULFATE 2 GM/50 ML BAG IV ONE ×2 (08:48→09:45)
[2019-04-29] MEDS: LEVOFLOXACIN 750 MG/150 ML BAG IV SCH (09:12)
[2019-04-29] MEDS ORDERED: MIDAZOLAM 5 MG/5 ML VIAL IV ONE (09:45)
[2019-04-29] MEDS ORDERED: KETAMINE 100 MG/ML ML IV ONE (09:45)
[2019-04-29] MEDS ORDERED: LIDOCAINE HCL/PF 100 MG/5 ML SYRINGE IV ONE (09:45)
[2019-04-29] MEDS ORDERED: ONDANSETRON 4 MG/2 ML VIAL IV ONE (09:45)
[2019-04-29] MEDS ORDERED: FAMOTIDINE/PF 20 MG/2 ML VIAL IV ONE (09:45)
[2019-04-29] MEDS ORDERED: ROCURONIUM 10 MG/ML ML IV ONE (09:45)
[2019-04-29] MEDS ORDERED: GLYCOPYRROLATE 0.2 MG/ML VIAL IV ONE (09:45)
[2019-04-29] MEDS ORDERED: PROPOFOL 200 MG/20 ML VIAL IV ONE (09:45)
[2019-04-29] MEDS ORDERED: PROMETHAZINE 25 MG/ML VIAL IV ONE (09:45)
[2019-04-29] MEDS ORDERED: DEXAMETHASONE 10 MG/ML VIAL IV ONE (09:45)
[2019-04-29] MEDS ORDERED: diphenhydrAMINE 50 MG/ML VIAL IV ONE (09:45)
[2019-04-29] MEDS ORDERED: fentaNYL 250 MCG/5 ML VIAL IV ONE (09:45)
[2019-04-29] MEDS ORDERED: ROPIVACAINE HCL/PF 30 ML VIAL IJ ONE (09:45)
[2019-04-29] MEDS ORDERED: KETOROLAC 30 MG/ML VIAL IV ONE (09:45)
[2019-04-29] MEDS ORDERED: METOCLOPRAMIDE 10 MG/2 ML VIAL IV ONE (09:45)
[2019-04-29] MEDS ORDERED: METOPROLOL TARTRATE 5 MG/5 ML VIAL IV ONE (09:45)
[2019-04-29] MEDS ORDERED: MEPERIDINE 25 MG/ML SYRINGE IV PRN (11:14)
[2019-04-29] MEDS ORDERED: LACTATED RINGERS 250 ML IV PRN (11:14)
[2019-04-29] MEDS ORDERED: FLUMAZENIL 0.1 MG/ML ML IV PRN (11:14)
[2019-04-29] MEDS ORDERED: BENZOCAINE/MENTHOL 1 LOZENGE PO PRN (11:14)
[2019-04-29] MEDS ORDERED: METHOCARBAMOL 1,000 MG/10 ML VIAL IV PRN (11:14)
[2019-04-29] MEDS ORDERED: NALOXONE HCL 0.4 MG/ML VIAL IV PRN (11:14)
[2019-04-29] MEDS ORDERED: METOPROLOL TARTRATE 5 MG/5 ML VIAL IV PRN (11:14)
[2019-04-29] MEDS ORDERED: ACETAMINOPHEN 1,000 MG/100 ML BOTTLE IV ONE (11:14)
[2019-04-29] MEDS ORDERED: ONDANSETRON 4 MG/2 ML VIAL IV PRN ×2 (11:14→12:43)
[2019-04-29] MEDS ORDERED: LABETALOL 5 MG/ML ML IV PRN (11:14)
[2019-04-29] MEDS ORDERED: fentaNYL 100 MCG/2 ML VIAL IV PRN (11:14)
[2019-04-29] MEDS ORDERED: LACTATED RINGERS 1,000 ML IV SCH (11:15)
--- NOTE | 2019-04-29 11:50 | Brief Operative Note ---
Date of procedure: 04/29/19 Pre-op diagnosis: perforated mass of cecum Post-op diagnosis: other (PERFORATED MASS OF CECUM) Procedure: RIGHT COLECTOMY Grafts/Implants: No Anesthesia: GETA Findings: FIRM MASS OF MEDIAL ASPECT OF CECUM AND ASCENDING COLON WITH DEEP PERFORATION ;MULTIPLE LARGE NODES IN MESENTERY EXTENDING TO AORTA NO JIMMIE HEPATIS OR LIVER NODULES Complications: none Surgeon: Rio Angeles Estimated blood loss (cc): 100 Specimens Removed/Pathology: other (RIGHT COLON) Condition: stable Disposition: PACU
[2019-04-29] MEDS ORDERED: ACETAMINOPHEN 1,000 MG in PREMIX 1 BAG IV SCH (12:43)
[2019-04-29] MEDS: HYDROmorphone 2 MG/ML VIAL IV PRN ×3 (13:03→22:06)
[2019-04-29] MEDS: LORazepam 2 MG/ML VIAL IV PRN ×2 (13:13→22:06)
[2019-04-29] MEDS: ACETAMINOPHEN 1,000 MG/100 ML BOTTLE IV SCH (17:34)
[2019-04-30] MEDS: metroNIDAZOLE 500 MG/100 ML BAG IV SCH ×5 (00:21→23:50)
[2019-04-30] MEDS: ACETAMINOPHEN 1,000 MG/100 ML BOTTLE IV SCH ×4 (00:22→20:42)
[2019-04-30] MEDS: 0.9 % SODIUM CHLORIDE 1,000 ML IV SCH ×3 (02:10→20:42)
[2019-04-30] MEDS: HYDROmorphone 2 MG/ML VIAL IV PRN ×6 (04:12→23:50)
[2019-04-30] MEDS: LORazepam 2 MG/ML VIAL IV PRN ×2 (04:16→22:39)
[2019-04-30 05:32] LABS: Basophils # (Auto) 0 K/mcL (0.0-0.3); Basophils % (Auto) 0.3 % (0.0-2.0); Eosinophils # (Auto) 0 K/mcL (0.0-0.7); Eosinophils % (Auto) 0 % (0.0-7.0); Hematocrit 32.6 % (36.0-48.0); Lymphocytes # (Auto) 1.9 K/mcL (1.5-4.8); Lymphocytes % (Auto) 19.9 % (15.5-49.0); Mean Cell Volume 92.2 fL (80.0-100.0); Mean Corpuscular HGB Conc 33.8 g/dL (31.0-36.0); Mean Platelet Volume 6.6 fL (7.4-10.4); Monocytes # (Auto) 0.7 K/mcL (0.1-0.9); Monocytes % (Auto) 7.8 % (1.0-12.0); Platelet Count 303 K/mcL (140-440); RBC 3.53 M/mcL (4.00-5.20); Red Cell Distribution Width 11.4 % (11.5-14.5); WBC 9.4 K/mcL (4.5-11.0)
[2019-04-30 05:50] LABS: ALT/SGPT 12 U/l (0-40); AST/SGOT 17 U/l (0-37); Albumin 3.1 gm/dL (3.2-5.2); Albumin/Globulin Ratio 1.2 (1.0-2.3); Alkaline Phosphatase 47 U/L (39-117); Bilirubin,Direct < 0.2 mg/dL (0.0-0.3); Bilirubin,Total 0.3 mg/dL (0.0-1.0); Blood Urea Nitrogen 11 mg/dl (6-20); Calcium 8.5 mg/dl (8.6-10.4); Carbon Dioxide 23 mmol/L (22-30); Chloride 105 mmol/L (96-108); Globulin 2.5 gm/dL (2.2-3.7); Glomerular Filtration Rate 113; Glucose 89 mg/dL (70-105); Lactate Dehydrogenase 154 U/L (94-250); Triglycerides 57 mg/dl (<150); Uric Acid 3.8 mg/dL (2.5-8.0)
[2019-04-30] MEDS: LEVOFLOXACIN 750 MG/150 ML BAG IV SCH (08:30)
[2019-04-30] MEDS: BENZOCAINE 1 SPRAY BOTTLE TOPICAL PRN ×5 (10:56→23:55)
[2019-04-30] MEDS: METOCLOPRAMIDE 10 MG/2 ML VIAL IV SCH ×2 (11:48→17:29)
[2019-04-30] MEDS ORDERED: ACETAMINOPHEN 1,000 MG in PREMIX 1 BAG IV SCH (14:30)
--- NOTE | 2019-04-30 16:57 | General Surgery Progress Note ---
Subjective Patient reports: feels better, pain is less, no flatus, no bowel movement, afebrile Narrative: Note initiated : 04/30/19 at 4:56 pm Service Date, if different from initiated Date: [] Patient: Aletha Landry 33 y/o F admitted on 04/25/19 for Abdominal Pain. Chief Complaint: [Patient feels better. She has been ambulating 3 today. She denies nausea. She is afebrile. White blood count 9.4, hemoglobin 11.] Objective Temp Pulse Resp BP Pulse Ox 97.8 F 75 20 126/79 98 04/30/19 16:37 04/30/19 16:37 04/30/19 16:37 04/30/19 16:37 04/30/19 16:37 - Additional Data Intake & Output - Last 24 hours: Intake & Output 04/28/19 04/29/19 04/30/19 05/01/19 05:59 05:59 05:59 05:59 Intake Total 3400 1779.0909 5107 1650 Output Total 4150 1500 1555 1075 Balance -054 275.2346 3552 575 Weight 162 lb 12.8 oz 160 lb 8 oz 159 lb 9.6 oz - General physical appearance well developed, well nourished, moderate distress, moderate pain - Eyes PERRL, normal ocular movement - ENT normal pinna, normal nares, normal mucosa, no hearing loss, no congestion - Neck no masses, no bruits, trachea midline, no lymphadenopathy, no venous distension - Respiratory normal expansion, normal respiratory effort, clear to auscultation - Cardiovascular Cardiovascular exam: Present: normal rate and rhythm, RRR, +S1, +S2. Absent: bradycardia, tachycardia - Abdomen soft, tender (tenderness of incision), bowel sounds (good active bowel sounds) - Integumentary no rash, no growths, no abnormal pigmentation - Neurologic normal coordination, normal sensation - Musculoskeletal normal gait, normal posture - Psychiatric oriented to time, oriented to person, oriented to place, speech is normal, memory intact - Labs 04/30/19 04:25 04/30/19 04:25 Diabetes panel 04/30/19 Range/Units 04:25 Sodium 139 (133-145) mmol/L Potassium 4.1 (3.3-5.1) mmol/L Chloride 105 (96-108) mmol/L Carbon Dioxide 23 (22-30) mmol/L BUN 11 (6-20) mg/dl Creatinine 0.7 (0.6-1.1) mg/dl Glucose 89 (70-105) mg/dL Calcium 8.5 L (8.6-10.4) mg/dl AST 17 (0-37) U/l ALT 12 (0-40) U/l Alkaline Phosphatase 47 (39-117) U/L Total Protein 5.6 L (5.9-8.4) gm/dL Albumin 3.1 L (3.2-5.2) gm/dL Triglycerides 57 (<150) mg/dl Calcium panel 04/30/19 Range/Units 04:25 Calcium 8.5 L (8.6-10.4) mg/dl Phosphorus 3.0 (2.7-4.5) mg/dL Albumin 3.1 L (3.2-5.2) gm/dL Pituitary panel 04/30/19 Range/Units 04:25 Sodium 139 (133-145) mmol/L Potassium 4.1 (3.3-5.1) mmol/L Chloride 105 (96-108) mmol/L Carbon Dioxide 23 (22-30) mmol/L BUN 11 (6-20) mg/dl Creatinine 0.7 (0.6-1.1) mg/dl Glucose 89 (70-105) mg/dL Calcium 8.5 L (8.6-10.4) mg/dl Adrenal panel 04/30/19 Range/Units 04:25 Sodium 139 (133-145) mmol/L Potassium 4.1 (3.3-5.1) mmol/L Chloride 105 (96-108) mmol/L Carbon Dioxide 23 (22-30) mmol/L BUN 11 (6-20) mg/dl Creatinine 0.7 (0.6-1.1) mg/dl Glucose 89 (70-105) mg/dL Calcium 8.5 L (8.6-10.4) mg/dl Total Bilirubin 0.3 (0.0-1.0) mg/dL AST 17 (0-37) U/l ALT 12 (0-40) U/l Alkaline Phosphatase 47 (39-117) U/L Total Protein 5.6 L (5.9-8.4) gm/dL Albumin 3.1 L (3.2-5.2) gm/dL Assessment and Plan (1) Cecal diverticulitis Status: Acute Assessment and plan: Continue antibiotics. Continue nasogastric suction Current Visit: Yes - Time Spent With Patient Total time spent is greater than 50% in coordination of care (as documented) at patient's floor/unit and/or counseling patient:
[2019-05-01] MEDS: METOCLOPRAMIDE 10 MG/2 ML VIAL IV SCH ×5 (00:19→23:47)
[2019-05-01] MEDS: 0.9 % SODIUM CHLORIDE 1,000 ML IV SCH ×4 (01:28→20:29)
[2019-05-01] MEDS: HYDROmorphone 2 MG/ML VIAL IV PRN ×6 (03:16→21:49)
[2019-05-01] MEDS: ACETAMINOPHEN 1,000 MG/100 ML BOTTLE IV SCH ×3 (03:22→19:19)
[2019-05-01] MEDS: BENZOCAINE 1 SPRAY BOTTLE TOPICAL PRN (03:25)
[2019-05-01 05:27] LABS: Basophils # (Auto) 0 K/mcL (0.0-0.3); Basophils % (Auto) 0.4 % (0.0-2.0); Eosinophils # (Auto) 0.1 K/mcL (0.0-0.7); Eosinophils % (Auto) 0.7 % (0.0-7.0); Granulocytes % (Auto) 66.3 % (38.0-78.0); Hematocrit 31.1 % (36.0-48.0); Hemoglobin 10.4 g/dL (12.0-15.0); Lymphocytes # (Auto) 2.1 K/mcL (1.5-4.8); Mean Cell Volume 91.6 fL (80.0-100.0); Mean Corpuscular HGB Conc 33.5 g/dL (31.0-36.0); Mean Platelet Volume 6.4 fL (7.4-10.4); Monocytes # (Auto) 0.6 K/mcL (0.1-0.9); Monocytes % (Auto) 7.6 % (1.0-12.0); Platelet Count 294 K/mcL (140-440); RBC 3.39 M/mcL (4.00-5.20); Red Cell Distribution Width 11.7 % (11.5-14.5); WBC 8.5 K/mcL (4.5-11.0)
[2019-05-01] MEDS: metroNIDAZOLE 500 MG/100 ML BAG IV SCH ×4 (06:04→23:46)
[2019-05-01] MEDS: ONDANSETRON 4 MG/2 ML VIAL IV PRN (06:32)
[2019-05-01 07:07] LABS: ALT/SGPT 12 U/l (0-40); AST/SGOT 16 U/l (0-37); Albumin 3.1 gm/dL (3.2-5.2); Albumin/Globulin Ratio 1.4 (1.0-2.3); Alkaline Phosphatase 43 U/L (39-117); Bilirubin,Direct < 0.2 mg/dL (0.0-0.3); Bilirubin,Total 0.2 mg/dL (0.0-1.0); Blood Urea Nitrogen 9 mg/dl (6-20); Calcium 8.3 mg/dl (8.6-10.4); Carbon Dioxide 25 mmol/L (22-30); Chloride 100 mmol/L (96-108); Globulin 2.2 gm/dL (2.2-3.7); Glomerular Filtration Rate 113; Glucose 74 mg/dL (70-105); Lactate Dehydrogenase 159 U/L (94-250); Phosphorous 2.2 mg/dL (2.7-4.5); Triglycerides 60 mg/dl (<150); Uric Acid 3.8 mg/dL (2.5-8.0)
[2019-05-01] MEDS: LEVOFLOXACIN 750 MG/150 ML BAG IV SCH (10:07)
--- NOTE | 2019-05-01 11:53 | Surgical Pathology Report ---
HISTOLOGY SPECIMEN MICROSCOPIC DIAGNOSIS COLON, TERMINAL ILEUM, APPENDIX, RIGHT HEMICOLECTOMY: -- COLONIC PERFORATION WITH PARACOLONIC ABSCESS, FAT NECROSIS, HEMORRHAGE, FIBROSIS AND ACUTE PERITONITIS. (SEE COMMENT) -- APPENDIX WITH NO SIGNIFICANT HISTOLOGIC ALTERATION. -- SURGICAL MARGINS APPEAR VIABLE. -- 12 PARACOLONIC LYMPH NODES WITH MARKED REACTIVE CHANGE, NEGATIVE FOR MALIGNANCY. (ACP:keith) COMMENT: The cecal mass consists of a region of mucosal perforation with paracolonic abscess, fat necrosis, hemorrhage, fibrosis and acute peritonitis. Associated diverticular disease is not definitively seen, although focally, the appearance is suggestive a possible ruptured diverticulum. Clinical and radiographic correlation is recommended. CLINICAL HISTORY Mass cecum and ascending colon. GROSS DESCRIPTION Specimen received as right colon segment with appendix and consists of a hemicolectomy specimen with portion of terminal ileum, appendix and cecum. The entire specimen measures 14.0 x 7.0 x 5.0 cm. The segment of terminal ileum measures 2.5 cm in length with a diameter of 3.0 cm and a staple line at the margin that measures up to 4.0 cm. The cecum has a gross perforation with associated serosal hyperemia and adhesions, and measures 13.0 cm in length with a diameter that ranges from 3.5 to 5.0 cm. The distal margin is stapled and the staple line measures up to 4.2 cm. The appendix is attached and measures 7.0 x 0.6 cm. Opening of the specimen reveals a small amount of soft green fecal material. No mucosal mass is seen with the region of perforation. There is a mucosal defect that measures 0.5 x 0.5 cm and the lesion is patent to probe. The perforation is present 1.5 cm from the ileocecal valve, 5.5 cm from the ileal margin of resection and 13.5 cm from the distal margin. Prior to opening, the serosa overlying the defect was inked black. The resected mesenteric margin is present 4.0 cm from the region of perforation. No additional mucosal lesions are identified. Sectioning mesenteric adipose tissue reveals multiple lymph nodes that measure up to 2.5 cm in maximum dimension. No gross evidence of metastatic carcinoma is seen. Sections according to the following slide guzman: A1- proximal, distal and mesenteric margins; A2 - appendix; A3-A6 - cross sections of perforation with mucosa and paracolonic adipose tissue; A7 - fulfillment representative colonic, ileal and ileocecal mucosa; A8-A11 - paracolonic lymph nodes. (ACP:keith) Electronically Signed by: Sacha Ma M.D.
--- NOTE | 2019-05-01 12:31 | Operative Note ---
DATE OF OPERATION: 04/29/2019 PREOPERATIVE DIAGNOSIS: Perforated mass of the cecum. POSTOPERATIVE DIAGNOSIS: Perforated mass of the cecum. PROCEDURE: Right colectomy. SURGEON: Rio Angeles MD FINDINGS: Firm mass of the medial aspect of the cecum and ascending colon with deep perforation and multiple large nodes in the mesentery extending to the aorta. No cindy hepatis or liver nodules were noted. DESCRIPTION OF PROCEDURE: Under general anesthesia, patient's abdomen was prepped and draped in a sterile field. A midline incision was made above and below the umbilicus. The umbilicus was not in the midline so the incision was slightly lateral to the umbilicus on the right side. The incision extended down to the midline where multiple Ethibond sutures were encountered. These were removed. The peritoneal cavity was entered. Inspection revealed a very firm mass of the cecum that was adherent laterally. There was also some omentum that was adherent, but these were inflammatory adhesions and the omentum was bluntly dissected off the mass and did not appear to be secondarily involved except for inflammation. The medial aspect of the mass showed evidence of perforation, but there was no major free purulence noted. Irrigation was carried out. The pelvis was irrigated. The lateral attachments of the cecum were mobilized along the line of Toldt and the cecum was mobilized into the incision. The appendix had some attachments in the pelvis. These were taken down using electrocautery. The cecum and ascending colon were mobilized up to the hepatic flexure. The terminal ileum was dissected and was divided using a contour stapler. The colon was divided in the distal ascending colon using electrocautery and a stapler. Vessels were tied with 2-0 silk. There were large nodes extending down to the aorta. The largest node close to the aorta was dissected off using blunt dissection. It was included with the specimen. The specimen was passed off. Inspection of the cindy hepatis and the liver did not reveal any nodularity or masses. Irrigation was carried out. [id number] anastomosis was performed using a PA 55 stapler for the ileocolonic anastomosis and a TA 55 stapler to close the resultant opening. The staple line was reinforced using running locking 2-0 Prolene. The mesenteric defect was closed with 2-0 Monocryl. Irrigation was carried out. Nasogastric tube was positioned in the stomach. The sponge, needle, instrument and blade counts were verified as correct. The fascia was closed with running #1 Prolene. Subcutaneous fat was closed with 2-0 Monocryl. Skin was closed with paradise. Tegaderm dressings were placed. The patient tolerated the procedure well. She was awakened and transferred to a bed and taken to the postanesthetic care unit in stable, satisfactory condition. LCS:tiffany Job ID: [id number] Doc ID: [id number] Rio Angeles M.D.
[2019-05-01] MEDS: LORazepam 2 MG/ML VIAL IV PRN (21:55)
[2019-05-02] MEDS: ACETAMINOPHEN 1,000 MG/100 ML BOTTLE IV SCH ×5 (01:19→21:17)
[2019-05-02] MEDS: 0.9 % SODIUM CHLORIDE 1,000 ML IV SCH ×4 (02:02→21:18)
[2019-05-02] MEDS: HYDROmorphone 2 MG/ML VIAL IV PRN ×5 (02:14→19:58)
[2019-05-02] MEDS: LORazepam 2 MG/ML VIAL IV PRN ×2 (04:11→21:18)
[2019-05-02] MEDS: METOCLOPRAMIDE 10 MG/2 ML VIAL IV SCH ×4 (05:43→23:52)
[2019-05-02] MEDS: metroNIDAZOLE 500 MG/100 ML BAG IV SCH ×4 (05:44→23:51)
[2019-05-02 06:26] LABS: Basophils # (Auto) 0 K/mcL (0.0-0.3); Basophils % (Auto) 0.4 % (0.0-2.0); Eosinophils # (Auto) 0.1 K/mcL (0.0-0.7); Eosinophils % (Auto) 1.2 % (0.0-7.0); Hematocrit 30.7 % (36.0-48.0); Hemoglobin 10.4 g/dL (12.0-15.0); Lymphocytes # (Auto) 1.8 K/mcL (1.5-4.8); Lymphocytes % (Auto) 22.5 % (15.5-49.0); Mean Cell Volume 91.1 fL (80.0-100.0); Mean Corpuscular HGB Conc 33.8 g/dL (31.0-36.0); Mean Platelet Volume 6.6 fL (7.4-10.4); Monocytes # (Auto) 0.6 K/mcL (0.1-0.9); Monocytes % (Auto) 7.9 % (1.0-12.0); Platelet Count 311 K/mcL (140-440); RBC 3.37 M/mcL (4.00-5.20); Red Cell Distribution Width 11.4 % (11.5-14.5); WBC 7.9 K/mcL (4.5-11.0)
[2019-05-02 07:14] LABS: ALT/SGPT 13 U/l (0-40); AST/SGOT 19 U/l (0-37); Albumin 3.2 gm/dL (3.2-5.2); Albumin/Globulin Ratio 1.4 (1.0-2.3); Alkaline Phosphatase 44 U/L (39-117); Bilirubin,Direct < 0.2 mg/dL (0.0-0.3); Bilirubin,Total 0.2 mg/dL (0.0-1.0); Blood Urea Nitrogen 7 mg/dl (6-20); Calcium 8.4 mg/dl (8.6-10.4); Carbon Dioxide 22 mmol/L (22-30); Chloride 101 mmol/L (96-108); Globulin 2.3 gm/dL (2.2-3.7); Glomerular Filtration Rate 113; Glucose 60 mg/dL (70-105); Lactate Dehydrogenase 170 U/L (94-250); Phosphorous 2.7 mg/dL (2.7-4.5); Triglycerides 85 mg/dl (<150); Uric Acid 4.5 mg/dL (2.5-8.0)
[2019-05-02] MEDS: LEVOFLOXACIN 750 MG/150 ML BAG IV SCH (09:29)
[2019-05-02] MEDS: ONDANSETRON 4 MG/2 ML VIAL IV PRN ×2 (10:54→17:37)
--- NOTE | 2019-05-02 14:58 | General Surgery Progress Note ---
Subjective Narrative: Note initiated : 05/02/19 at 2:55 pm Service Date, if different from initiated Date: [05/01/2019] Patient: Aletha Landry 33 y/o F admitted on 04/25/19 for Abdominal Pain. Chief Complaint: [ patient continues to do well. She has not had flatus or bowel movement. She was started on water and ENLIVE. Her pain is better controlled. Discussed with her that her preliminary path is an inflammatory lesion] Objective Temp Pulse Resp BP Pulse Ox 97.6 F 100 H 16 125/82 97 05/02/19 12:00 05/02/19 12:00 05/02/19 12:00 05/02/19 12:00 05/02/19 12:00 - Additional Data Intake & Output - Last 24 hours: Intake & Output 04/30/19 05/01/19 05/02/19 05/03/19 05:59 05:59 05:59 04:59 Intake Total 5107 4320 3550 1450 Output Total 1555 3425 2300 1100 Balance 3552 895 1250 350 Weight 159 lb 9.6 oz 160 lb 2 oz 163 lb 12.8 oz - General physical appearance well developed, well nourished, no distress, moderate pain - Eyes PERRL, normal ocular movement - ENT normal pinna, normal nares, normal mucosa, no hearing loss, no congestion - Neck no masses, no bruits, trachea midline, no lymphadenopathy, no venous distension - Respiratory normal expansion, normal respiratory effort, clear to auscultation - Cardiovascular Cardiovascular exam: Present: normal rate and rhythm, RRR, +S1, +S2. Absent: JVD, tachycardia - Abdomen tender (tenderness midline incision; good active bowel sounds; bowel distention) - Integumentary no rash, no growths, no abnormal pigmentation - Neurologic normal coordination, normal sensation - Musculoskeletal normal gait, normal posture - Psychiatric oriented to time, oriented to person, oriented to place, speech is normal, memory intact - Labs 05/02/19 04:17 05/02/19 04:17 Diabetes panel 05/02/19 Range/Units 04:17 Sodium 136 (133-145) mmol/L Potassium 3.6 (3.3-5.1) mmol/L Chloride 101 (96-108) mmol/L Carbon Dioxide 22 (22-30) mmol/L BUN 7 (6-20) mg/dl Creatinine 0.7 (0.6-1.1) mg/dl Glucose 60 L (70-105) mg/dL Calcium 8.4 L (8.6-10.4) mg/dl AST 19 (0-37) U/l ALT 13 (0-40) U/l Alkaline Phosphatase 44 (39-117) U/L Total Protein 5.5 L (5.9-8.4) gm/dL Albumin 3.2 (3.2-5.2) gm/dL Triglycerides 85 (<150) mg/dl Calcium panel 05/02/19 Range/Units 04:17 Calcium 8.4 L (8.6-10.4) mg/dl Phosphorus 2.7 (2.7-4.5) mg/dL Albumin 3.2 (3.2-5.2) gm/dL Pituitary panel 05/02/19 Range/Units 04:17 Sodium 136 (133-145) mmol/L Potassium 3.6 (3.3-5.1) mmol/L Chloride 101 (96-108) mmol/L Carbon Dioxide 22 (22-30) mmol/L BUN 7 (6-20) mg/dl Creatinine 0.7 (0.6-1.1) mg/dl Glucose 60 L (70-105) mg/dL Calcium 8.4 L (8.6-10.4) mg/dl Adrenal panel 05/02/19 Range/Units 04:17 Sodium 136 (133-145) mmol/L Potassium 3.6 (3.3-5.1) mmol/L Chloride 101 (96-108) mmol/L Carbon Dioxide 22 (22-30) mmol/L BUN 7 (6-20) mg/dl Creatinine 0.7 (0.6-1.1) mg/dl Glucose 60 L (70-105) mg/dL Calcium 8.4 L (8.6-10.4) mg/dl Total Bilirubin 0.2 (0.0-1.0) mg/dL AST 19 (0-37) U/l ALT 13 (0-40) U/l Alkaline Phosphatase 44 (39-117) U/L Total Protein 5.5 L (5.9-8.4) gm/dL Albumin 3.2 (3.2-5.2) gm/dL Assessment and Plan (1) Cecal diverticulitis Status: Acute Assessment and plan: Continue antibiotics. Discontinue nasogastric tube. Subsequent clear liquids. Follow-up abdominal x-ray in the morning Current Visit: Yes - Time Spent With Patient Total time spent is greater than 50% in coordination of care (as documented) at patient's floor/unit and/or counseling patient:
--- NOTE | 2019-05-02 15:01 | General Surgery Progress Note ---
Subjective Patient reports: feels better, pain is less, tolerating liquids well, flatus, no bowel movement, afebrile Narrative: Note initiated : 05/02/19 at 2:59 pm Service Date, if different from initiated Date: [] Patient: Aletha Landry 33 y/o F admitted on 04/25/19 for Abdominal Pain. Chief Complaint: [patient continues to feel better. She has passed a small amount of gas. She denies nausea. Her pain is well controlled. White blood count 7.9, hemoglobin 10.4, hematocrit 30.7.] Objective Temp Pulse Resp BP Pulse Ox 97.6 F 100 H 16 125/82 97 05/02/19 12:00 05/02/19 12:00 05/02/19 12:00 05/02/19 12:00 05/02/19 12:00 - Additional Data Intake & Output - Last 24 hours: Intake & Output 04/30/19 05/01/19 05/02/19 05/03/19 05:59 05:59 05:59 04:59 Intake Total 5107 4320 3550 1450 Output Total 1555 3425 2300 1100 Balance 3552 895 1250 350 Weight 159 lb 9.6 oz 160 lb 2 oz 163 lb 12.8 oz - General physical appearance well developed, well nourished, no distress - Eyes PERRL, normal ocular movement - ENT normal pinna, normal nares, normal mucosa, no hearing loss, no congestion - Neck no masses, no bruits, trachea midline, no lymphadenopathy, no venous distension - Respiratory normal expansion, normal respiratory effort, clear to auscultation - Cardiovascular Cardiovascular exam: Present: normal rate and rhythm, RRR, +S1, +S2. Absent: JVD, tachycardia - Abdomen tender (moderate tenderness of the dentition), bowel sounds ( good. Hyperactive bowel sounds), surgical scars (none), masses (none) - Integumentary no rash, no growths, no abnormal pigmentation - Neurologic normal coordination, normal sensation - Musculoskeletal normal gait, normal posture - Psychiatric oriented to time, oriented to person, oriented to place, speech is normal, memory intact - Labs 05/02/19 04:17 05/02/19 04:17 Diabetes panel 05/02/19 Range/Units 04:17 Sodium 136 (133-145) mmol/L Potassium 3.6 (3.3-5.1) mmol/L Chloride 101 (96-108) mmol/L Carbon Dioxide 22 (22-30) mmol/L BUN 7 (6-20) mg/dl Creatinine 0.7 (0.6-1.1) mg/dl Glucose 60 L (70-105) mg/dL Calcium 8.4 L (8.6-10.4) mg/dl AST 19 (0-37) U/l ALT 13 (0-40) U/l Alkaline Phosphatase 44 (39-117) U/L Total Protein 5.5 L (5.9-8.4) gm/dL Albumin 3.2 (3.2-5.2) gm/dL Triglycerides 85 (<150) mg/dl Calcium panel 05/02/19 Range/Units 04:17 Calcium 8.4 L (8.6-10.4) mg/dl Phosphorus 2.7 (2.7-4.5) mg/dL Albumin 3.2 (3.2-5.2) gm/dL Pituitary panel 05/02/19 Range/Units 04:17 Sodium 136 (133-145) mmol/L Potassium 3.6 (3.3-5.1) mmol/L Chloride 101 (96-108) mmol/L Carbon Dioxide 22 (22-30) mmol/L BUN 7 (6-20) mg/dl Creatinine 0.7 (0.6-1.1) mg/dl Glucose 60 L (70-105) mg/dL Calcium 8.4 L (8.6-10.4) mg/dl Adrenal panel 05/02/19 Range/Units 04:17 Sodium 136 (133-145) mmol/L Potassium 3.6 (3.3-5.1) mmol/L Chloride 101 (96-108) mmol/L Carbon Dioxide 22 (22-30) mmol/L BUN 7 (6-20) mg/dl Creatinine 0.7 (0.6-1.1) mg/dl Glucose 60 L (70-105) mg/dL Calcium 8.4 L (8.6-10.4) mg/dl Total Bilirubin 0.2 (0.0-1.0) mg/dL AST 19 (0-37) U/l ALT 13 (0-40) U/l Alkaline Phosphatase 44 (39-117) U/L Total Protein 5.5 L (5.9-8.4) gm/dL Albumin 3.2 (3.2-5.2) gm/dL Assessment and Plan (1) Cecal diverticulitis Status: Acute Assessment and plan: Continue antibiotics.. Subsequent clear liquids. Follow-up abdominal x-ray in the morning Current Visit: Yes - Time Spent With Patient Total time spent is greater than 50% in coordination of care (as documented) at patient's floor/unit and/or counseling patient:
[2019-05-02] MEDS: PROMETHAZINE 25 MG/ML VIAL IV PRN (19:46)
[2019-05-03] MEDS: ACETAMINOPHEN 1,000 MG/100 ML BOTTLE IV SCH ×4 (02:52→20:06)
[2019-05-03] MEDS: 0.9 % SODIUM CHLORIDE 1,000 ML IV SCH ×3 (04:42→16:11)
[2019-05-03] MEDS: metroNIDAZOLE 500 MG/100 ML BAG IV SCH ×4 (05:14→23:42)
[2019-05-03] MEDS: METOCLOPRAMIDE 10 MG/2 ML VIAL IV SCH ×4 (05:14→23:39)
[2019-05-03] MEDS: HYDROmorphone 2 MG/ML VIAL IV PRN ×5 (05:49→20:05)
[2019-05-03] MEDS: ONDANSETRON 4 MG/2 ML VIAL IV PRN ×2 (06:04→14:46)
[2019-05-03] MEDS: LORazepam 2 MG/ML VIAL IV PRN ×2 (06:05→20:05)
[2019-05-03] MEDS: LEVOFLOXACIN 750 MG/150 ML BAG IV SCH (09:17)
--- NOTE | 2019-05-03 09:22 | XRay Report ---
CLINICAL INFORMATION: History of inflammatory or neoplastic mass involving the cecum. Status post partial colectomy TECHNIQUE: Supine and upright abdomen COMPARISON: Preoperative CT scans dated 04/25/2019 and 04/28/2019 FINDINGS: Skin paradise in a vertical midline incision. There are surgical sutures in the right side of the abdomen Bowel gas pattern is unremarkable. No evidence for mechanical small bowel obstruction. No dilated gas-filled small bowel. There is colonic gas present. No colonic dilatation. No pneumoperitoneum. No biliary or portal venous gas. There is no pneumatosis. IMPRESSION: 1. Previous partial colectomy 2. Unremarkable bowel gas pattern. There is no obstruction. No pneumoperitoneum. Interpreted and Authenticated by: Joseph Jung 05/03/19
--- NOTE | 2019-05-03 12:20 | General Surgery Progress Note ---
Subjective Patient reports: feels better, pain is less, tolerating liquids well, flatus, bowel movement, afebrile Narrative: Note initiated : 05/03/19 at 12:18 pm Service Date, if different from initiated Date: [] Patient: Aletha Landry 33 y/o F admitted on 04/25/19 for Abdominal Pain. Chief Complaint: [Patient is doing well. She has had more flatus and bowel movements. Her pain is improved. She denies nausea. She is afebrile.] Objective Temp Pulse Resp BP Pulse Ox 98.1 F 61 20 110/79 98 05/03/19 07:24 05/03/19 02:59 05/03/19 07:24 05/03/19 07:24 05/03/19 07:24 - Additional Data Intake & Output - Last 24 hours: Intake & Output 05/01/19 05/02/19 05/03/19 05/04/19 06:59 06:59 05:59 05:59 Intake Total 350 Output Total 1750 Balance -1400 Weight - General physical appearance well developed, well nourished, no distress - Eyes PERRL, normal ocular movement - ENT normal pinna, normal nares, normal mucosa, no hearing loss, no congestion - Neck no masses, no bruits, trachea midline, no lymphadenopathy, no venous distension - Respiratory normal expansion, normal respiratory effort, clear to auscultation - Cardiovascular Cardiovascular exam: Present: normal rate and rhythm, RRR, +S1, +S2. Absent: JVD, tachycardia - Abdomen tender ( tenderness around the incision , otherwise benign abdomen), bowel sounds (present), surgical scars (none), masses (none) - Integumentary no rash, no growths, no abnormal pigmentation - Neurologic normal coordination, normal sensation - Musculoskeletal normal gait, normal posture - Psychiatric oriented to time, oriented to person, oriented to place, speech is normal, memory intact - Labs 05/02/19 04:17 05/02/19 04:17 Assessment and Plan (1) Cecal diverticulitis Status: Acute Assessment and plan: Continue antibiotics.. Full liquid diet and advance to soft diet in the morning. Probable discharge tomorrow Current Visit: Yes - Time Spent With Patient Total time spent is greater than 50% in coordination of care (as documented) at patient's floor/unit and/or counseling patient:
[2019-05-03] MEDS: PROMETHAZINE 25 MG/ML VIAL IV PRN (17:57)
[2019-05-04] MEDS: 0.9 % SODIUM CHLORIDE 1,000 ML IV SCH ×3 (02:16→12:20)
[2019-05-04] MEDS: ACETAMINOPHEN 1,000 MG/100 ML BOTTLE IV SCH ×2 (02:33→10:53)
[2019-05-04] MEDS: LORazepam 2 MG/ML VIAL IV PRN (03:21)
[2019-05-04] MEDS: metroNIDAZOLE 500 MG/100 ML BAG IV SCH ×2 (05:35→12:28)
[2019-05-04] MEDS: METOCLOPRAMIDE 10 MG/2 ML VIAL IV SCH ×2 (05:35→12:20)
[2019-05-04] MEDS: HYDROmorphone 2 MG/ML VIAL IV PRN ×2 (08:15→11:31)
[2019-05-04] MEDS: LEVOFLOXACIN 750 MG/150 ML BAG IV SCH (09:05)
[2019-05-04] MEDS: ONDANSETRON 4 MG/2 ML VIAL IV PRN (10:24)
--- NOTE | 2019-05-04 13:23 | Discharge Summary ---
Providers - Providers Patient information: Note initiated : 05/04/19 at 1:19 pm Service Date, if different from initiated Date: [] Patient: Aletha Landry 33 y/o F admitted on 04/25/19 for Abdominal Pain. Chief Complaint: [] Date of admission: 04/25/19 Discharge date: 05/04/19 Attending physician: Rio Angeles Hospitalization Hospital Course: 33-year-old female admitted 25 April with acute right-sided abdominal pain. She also had nausea and vomiting and temperature elevation to 101.5. She was seen in the emergency room course CT showed thickening of the cecum and ascending colon suggestive of cecal diverticulitis. She was treated with IV antibiotics and bowel rest. She continued to have significant pain in her right lower quadrant, so CT was done on 29 April and this showed a large mass of the cecum. She was counseled for laparotomy and this was performed on March. She was noted to have a perforated mass in the cecum and the right colectomy was done. She had an uneventful postoperative course and developed flatus starting to normal. Diet was slowly advanced and she is now on a soft diet without difficulty. She is having regular bowel movements and passing flatus. Discharge diagnosis: perforated mass of cecum Secondary discharge diagnosis: Localized peritonitis. Pericolonic abscess with fat necrosis Reason for admission: abdominal pain, nausea, vomiting Procedures: Right colectomy Pertinent studies/significant findings: CT of abdomen and pelvis with IV contrast Complications: None Exam Temp Pulse Resp BP Pulse Ox 97.6 F 92 H 16 114/82 98 05/04/19 12:00 05/04/19 12:00 05/04/19 12:00 05/04/19 12:00 05/04/19 12:00 - General physical appearance well developed, well nourished, no distress - Eyes PERRL, normal ocular movement - ENT normal pinna, normal nares, normal mucosa, no hearing loss, no congestion - Head Head exam IM: Present: atraumatic, normocephalic - Neck no masses, no bruits, trachea midline, no lymphadenopathy, no venous distension - Cardiovascular Cardiovascular exam IM: Present: normal rate and rhythm - Respiratory normal expansion, normal respiratory effort, clear to percussion, clear to auscultation - Abdomen Abdomen: Present: soft, tender (mild tenderness midline incision, otherwise benign abdomen; good active bowel sounds), bowel sounds Hernia: Present: none - Genitourinary Present: normal external genitalia - Integumentary Present: no rash, no growths, no abnormal pigmentation - Neurologic Present: normal coordination, normal sensation - Musculoskeletal Present: normal gait, normal posture - Psychiatric Present: oriented to time, oriented to person, oriented to place, speech is normal, memory intact Discharge Plan - Patient/Caregiver Discharge Instructions Activity: increase activity as tolerated Diet: Regular Diet (, soft diet and advance as tolerated) Additional Instructions: Leave dressing in place until he returned to the office. Office follow-up May MiraLAX 8 ounces once or twice daily as needed Prescriptions: oxyCODONE/APAP [Percocet 5-325 mg] 1 tab PO Q4HP PRN #40 tab PRN Reason: Pain Prescription Printed Promethazine [Phenergan] 25 mg PO Q4HP PRN #30 tab MDD 4 PRN Reason: Nausea And Vomiting Transmission Status: Pending to [facility] #[id number] - Follow up Plan Follow up with: Riley Roth ARNP [Primary Care Provider] - Rio Angeles MD [Physician] - 05/12/19 Disposition: Home, Self-Care Prognosis: Good Rehab Potential: Good I certify that the patient requires SNF services.: No Overall status at discharge: patient is progressing back to baseline Pending Studies Resuscitation Status Full Code Diet GI Soft/Transitional Start SatMay 04 0631 Benzocaine (Cetacaine) 1 spray TOPICAL PRN PRN PRN Reason: Sore Throat Last Admin: 05/01/19 03:25 Dose: 1 spray Documented by: [email or web address] Admin: 04/30/19 23:55 Dose: 1 spray Documented by: [email or web address] Admin: 04/30/19 19:09 Dose: 1 spray Documented by: [email or web address] Admin: 04/30/19 14:34 Dose: 1 spray Documented by: [email or web address] Admin: 04/30/19 11:57 Dose: 1 spray Documented by: [email or web address] Admin: 04/30/19 10:56 Dose: 1 spray Documented by: [email or web address] Hydromorphone HCl (Dilaudid) 1 mg IV Q2HP PRN PRN Reason: PAIN LEVEL > 6 Last Admin: 05/04/19 11:31 Dose: 1 mg Documented by: [email or web address] Admin: 05/04/19 08:15 Dose: 1 mg Documented by: Admin: 05/03/19 20:05 Dose: 1 mg Documented by: Admin: 05/03/19 16:12 Dose: 1 mg Documented by: Admin: 05/03/19 14:06 Dose: 1 mg Documented by: Admin: 05/03/19 09:17 Dose: 1 mg Documented by: Admin: 05/03/19 05:49 Dose: 1 mg Documented by: Admin: 05/02/19 19:58 Dose: 1 mg Documented by: Admin: 05/02/19 17:37 Dose: 1 mg Documented by: Admin: 05/02/19 14:16 Dose: 1 mg Documented by: Admin: 05/02/19 10:54 Dose: 1 mg Documented by: Admin: 05/02/19 02:14 Dose: 1 mg Documented by: Admin: 05/01/19 21:49 Dose: 1 mg Documented by: Admin: 05/01/19 17:50 Dose: 1 mg Documented by: Admin: 05/01/19 16:03 Dose: 1 mg Documented by: Admin: 05/01/19 09:56 Dose: 1 mg Documented by: Admin: 05/01/19 06:32 Dose: 1 mg Documented by: [email or web address] Admin: 05/01/19 03:16 Dose: 1 mg Documented by: [email or web address] Admin: 04/30/19 23:50 Dose: 1 mg Documented by: [email or web address] Admin: 04/30/19 19:08 Dose: 1 mg Documented by: [email or web address] Admin: 04/30/19 14:31 Dose: 1 mg Documented by: [email or web address] Admin: 04/30/19 11:47 Dose: 1 mg Documented by: [email or web address] Admin: 04/30/19 07:49 Dose: 1 mg Documented by: [email or web address] Admin: 04/30/19 04:12 Dose: 1 mg Documented by: Admin: 04/29/19 22:06 Dose: 1 mg Documented by: Admin: 04/29/19 16:26 Dose: 1 mg Documented by: [email or web address] Admin: 04/29/19 13:03 Dose: 1 mg Documented by: [email or web address] Levofloxacin (Levaquin) 750 mg in 150 mls @ 100 mls/hr IV DAILY GREG; Protocol Last Admin: 05/04/19 09:05 Dose: 100 mls/hr Documented by: Infusion: 05/03/19 11:26 Dose: 0 mls/hr Documented by: Admin: 05/03/19 09:17 Dose: 100 mls/hr Documented by: Infusion: 05/02/19 11:00 Dose: 0 mls/hr Documented by: Admin: 05/02/19 09:29 Dose: 100 mls/hr Documented by: Infusion: 05/01/19 11:37 Dose: 0 mls/hr Documented by: Admin: 05/01/19 10:07 Dose: 100 mls/hr Documented by: Infusion: 04/30/19 10:00 Dose: 0 mls/hr Documented by: Admin: 04/30/19 08:30 Dose: 100 mls/hr Documented by: [email or web address] Metronidazole (Flagyl) 500 mg in 100 mls @ 100 mls/hr IV Q6H GREG; Protocol Last Admin: 05/04/19 12:28 Dose: 100 mls/hr Documented by: Infusion: 05/04/19 09:16 Dose: 100 mls/hr Documented by: Admin: 05/04/19 05:35 Dose: 100 mls/hr Documented by: Infusion: 05/04/19 00:42 Dose: 100 mls/hr Documented by: Admin: 05/03/19 23:42 Dose: 100 mls/hr Documented by: Infusion: 05/03/19 18:57 Dose: 100 mls/hr Documented by: Admin: 05/03/19 17:57 Dose: 100 mls/hr Documented by: Infusion: 05/03/19 12:25 Dose: 0 mls/hr Documented by: Admin: 05/03/19 11:25 Dose: 100 mls/hr Documented by: [email or web address] Infusion: 05/03/19 06:15 Dose: 0 mls/hr Documented by: [email or web address] Admin: 05/03/19 05:14 Dose: 100 mls/hr Documented by: Infusion: 05/03/19 00:51 Dose: 100 mls/hr Documented by: Admin: 05/02/19 23:51 Dose: 100 mls/hr Documented by: Infusion: 05/02/19 18:38 Dose: 100 mls/hr Documented by: Admin: 05/02/19 17:38 Dose: 100 mls/hr Documented by: [email or web address] Infusion: 05/02/19 13:30 Dose: 0 mls/hr Documented by: [email or web address] Admin: 05/02/19 12:24 Dose: 100 mls/hr Documented by: [email or web address] Infusion: 05/02/19 06:50 Dose: 0 mls/hr Documented by: [email or web address] Admin: 05/02/19 05:44 Dose: 100 mls/hr Documented by: Infusion: 05/02/19 00:46 Dose: 100 mls/hr Documented by: Admin: 05/01/19 23:46 Dose: 100 mls/hr Documented by: Infusion: 05/01/19 18:39 Dose: 100 mls/hr Documented by: Admin: 05/01/19 17:39 Dose: 100 mls/hr Documented by: Infusion: 05/01/19 13:28 Dose: 100 mls/hr Documented by: [email or web address] Admin: 05/01/19 12:28 Dose: 100 mls/hr Documented by: Infusion: 05/01/19 07:04 Dose: 0 mls/hr Documented by: [email or web address] Admin: 05/01/19 06:04 Dose: 100 mls/hr Documented by: Infusion: 05/01/19 00:50 Dose: 100 mls/hr Documented by: [email or web address] Admin: 04/30/19 23:50 Dose: 100 mls/hr Documented by: Infusion: 04/30/19 18:29 Dose: 100 mls/hr Documented by: [email or web address] Admin: 04/30/19 17:29 Dose: 100 mls/hr Documented by: [email or web address] Infusion: 04/30/19 12:53 Dose: 0 mls/hr Documented by: [email or web address] Admin: 04/30/19 11:47 Dose: 100 mls/hr Documented by: [email or web address] Infusion: 04/30/19 07:05 Dose: 0 mls/hr Documented by: [email or web address] Admin: 04/30/19 06:02 Dose: 100 mls/hr Documented by: Infusion: 04/30/19 01:30 Dose: 0 mls/hr Documented by: Admin: 04/30/19 00:21 Dose: 100 mls/hr Documented by: Infusion: 04/29/19 19:16 Dose: 100 mls/hr Documented by: Admin: 04/29/19 18:16 Dose: 100 mls/hr Documented by: [email or web address] Infusion: 04/29/19 14:15 Dose: 0 mls/hr Documented by: [email or web address] Admin: 04/29/19 13:17 Dose: 100 mls/hr Documented by: [email or web address] Sodium Chloride (Sodium Chloride 0.9%) 1,000 mls @ 150 mls/hr IV .[id number] [facility] Admin: 05/04/19 12:20 Dose: 150 mls/hr Documented by: Admin: 05/04/19 11:13 Dose: Not Given Documented by: Infusion: 05/04/19 09:16 Dose: 150 mls/hr Documented by: Admin: 05/04/19 02:16 Dose: 150 mls/hr Documented by: Infusion: 05/03/19 22:52 Dose: 150 mls/hr Documented by: Admin: 05/03/19 16:11 Dose: 150 mls/hr Documented by: Admin: 05/03/19 15:09 Dose: Not Given Documented by: NIMonie Infusion: 05/03/19 11:23 Dose: 150 mls/hr Documented by: [email or web address] Admin: 05/03/19 04:42 Dose: 150 mls/hr Documented by: Infusion: 05/03/19 02:59 Dose: 150 mls/hr Documented by: Admin: 05/02/19 21:18 Dose: 150 mls/hr Documented by: Infusion: 05/02/19 19:04 Dose: 150 mls/hr Documented by: Admin: 05/02/19 14:21 Dose: Not Given Documented by: Admin: 05/02/19 12:23 Dose: 150 mls/hr Documented by: [email or web address] Infusion: 05/02/19 08:43 Dose: 150 mls/hr Documented by: Admin: 05/02/19 02:02 Dose: 150 mls/hr Documented by: Infusion: 05/01/19 23:47 Dose: 150 mls/hr Documented by: Admin: 05/01/19 20:29 Dose: Not Given Documented by: Admin: 05/01/19 17:06 Dose: 150 mls/hr Documented by: [email or web address] Infusion: 05/01/19 10:56 Dose: 150 mls/hr Documented by: [email or web address] Admin: 05/01/19 04:15 Dose: 150 mls/hr Documented by: [email or web address] Infusion: 05/01/19 03:23 Dose: 150 mls/hr Documented by: [email or web address] Admin: 05/01/19 01:28 Dose: Not Given Documented by: [email or web address] Admin: 04/30/19 20:42 Dose: 150 mls/hr Documented by: [email or web address] Infusion: 04/30/19 17:12 Dose: 150 mls/hr Documented by: [email or web address] Admin: 04/30/19 10:31 Dose: 150 mls/hr Documented by: Infusion: 04/30/19 06:36 Dose: 150 mls/hr Documented by: Admin: 04/30/19 02:10 Dose: Not Given Documented by: Admin: 04/29/19 23:55 Dose: 150 mls/hr Documented by: [email or web address] Infusion: 04/29/19 22:11 Dose: 150 mls/hr Documented by: [email or web address] Admin: 04/29/19 15:30 Dose: 150 mls/hr Documented by: [email or web address] Acetaminophen (Ofirmev) 1,000 mg in 100 mls @ 200 mls/hr IV Q6H GREG Last Infusion: 05/04/19 11:34 Dose: 200 mls/hr Documented by: Admin: 05/04/19 10:53 Dose: 200 mls/hr Documented by: Infusion: 05/04/19 09:16 Dose: 200 mls/hr Documented by: Admin: 05/04/19 02:33 Dose: 200 mls/hr Documented by: Infusion: 05/03/19 20:36 Dose: 200 mls/hr Documented by: Admin: 05/03/19 20:06 Dose: 200 mls/hr Documented by: Infusion: 05/03/19 16:00 Dose: 0 mls/hr Documented by: NIMonie Admin: 05/03/19 15:06 Dose: 200 mls/hr Documented by: NIMonie Infusion: 05/03/19 09:10 Dose: 0 mls/hr [facility]: 05/03/19 08:37 Dose: 200 mls/hr Documented by: NIMonie Infusion: 05/03/19 03:22 Dose: 200 mls/hr [facility] Admin: 05/03/19 02:52 Dose: 200 mls/hr Documented by: Infusion: 05/02/19 21:47 Dose: 200 mls/hr Documented by: Admin: 05/02/19 21:17 Dose: 200 mls/hr Documented by: Infusion: 05/02/19 14:50 Dose: 0 mls/hr [facility]ed [facility]: [email or web address] Admin: 05/02/19 14:19 Dose: 200 mls/hr [facility]ed [facility]: [email or web address] Infusion: 05/02/19 09:00 Dose: 0 mls/hr [facility]ed [facility]: [email or web address] Admin: 05/02/19 08:27 Dose: 200 mls/hr [facility]ed [facility]: [email or web address] Admin: 05/02/19 06:52 Dose: Not Given Documented by: [email or web address] Infusion: 05/02/19 01:49 Dose: 200 mls/hr [facility]: [email or web address] Admin: 05/02/19 01:19 Dose: 200 mls/hr Documented by: Infusion: 05/01/19 19:49 Dose: 200 mls/hr Documented by: Admin: 05/01/19 19:19 Dose: 200 mls/hr Documented by: Infusion: 05/01/19 12:29 Dose: 0 mls/hr Documented by: Admin: 05/01/19 11:52 Dose: 200 mls/hr Documented by: Infusion: 05/01/19 03:52 Dose: 0 mls/hr Documented by: Admin: 05/01/19 03:22 Dose: 200 mls/hr Documented by: Infusion: 04/30/19 22:00 Dose: 0 mls/hr Documented by: Admin: 04/30/19 20:42 Dose: 200 mls/hr Documented by: Infusion: 04/30/19 16:42 Dose: 0 mls/hr Documented by: Admin: 04/30/19 15:24 Dose: 200 mls/hr Documented by: [email or web address] Lorazepam (Ativan) 1 mg IV Q6HP PRN PRN Reason: ANXIETY/SEDATION Last Admin: 05/04/19 03:21 Dose: 1 mg Documented by: Admin: 05/03/19 20:05 Dose: 1 mg Documented by: Admin: 05/03/19 06:05 Dose: 1 mg Documented by: Admin: 05/02/19 21:18 Dose: 1 mg Documented by: Admin: 05/02/19 04:11 Dose: 1 mg Documented by: Admin: 05/01/19 21:55 Dose: 1 mg Documented by: Admin: 04/30/19 22:39 Dose: 1 mg Documented by: Admin: 04/30/19 04:16 Dose: 1 mg Documented by: Admin: 04/29/19 22:06 Dose: 1 mg Documented by: Admin: 04/29/19 13:13 Dose: 1 mg Documented by: [email or web address] Metoclopramide HCl (Reglan) 10 mg IV Q6 GREG Last Admin: 05/04/19 12:20 Dose: 10 mg Documented by: Admin: 05/04/19 05:35 Dose: 10 mg Documented by: Admin: 05/03/19 23:39 Dose: 10 mg Documented by: Admin: 05/03/19 17:57 Dose: 10 mg Documented by: [email or web address] Admin: 05/03/19 11:26 Dose: 10 mg Documented by: Admin: 05/03/19 05:14 Dose: 10 mg Documented by: Admin: 05/02/19 23:52 Dose: 10 mg Documented by: Admin: 05/02/19 17:37 Dose: 10 mg Documented by: Admin: 05/02/19 12:24 Dose: 10 mg Documented by: Admin: 05/02/19 05:43 Dose: 10 mg Documented by: Admin: 05/01/19 23:47 Dose: 10 mg Documented by: Admin: 05/01/19 17:40 Dose: 10 mg Documented by: Admin: 05/01/19 12:28 Dose: 10 mg Documented by: Admin: 05/01/19 06:04 Dose: 10 mg Documented by: [email or web address] Admin: 05/01/19 00:19 Dose: 10 mg Documented by: [email or web address] Admin: 04/30/19 17:29 Dose: 10 mg Documented by: [email or web address] Admin: 04/30/19 11:48 Dose: 10 mg Documented by: [email or web address] Ondansetron HCl (Zofran) 4 mg IV Q4HP PRN PRN Reason: Nausea And Vomiting Last Admin: 05/04/19 10:24 Dose: 4 mg Documented by: [email or web address] Admin: 05/03/19 14:46 Dose: 4 mg Documented by: Admin: 05/03/19 06:04 Dose: 4 mg Documented by: Admin: 05/02/19 17:37 Dose: 4 mg Documented by: [email or web address] Admin: 05/02/19 10:54 Dose: 4 mg Documented by: [email or web address] Admin: 05/01/19 06:32 Dose: 4 mg Documented by: [email or web address] Promethazine HCl (Phenergan) 12.5 mg IV Q4HP PRN PRN Reason: Nausea And Vomiting Last Admin: 05/03/19 17:57 Dose: 12.5 mg Documented by: [email or web address] Admin: 05/02/19 19:46 Dose: 12.5 mg Documented by: CHRIS Shift Summary 05/04/19 02:48 Shift Summary by Chun Rolle Patient is alert and oriented times four. Had right collectomy done. dressing clean, dry and intact. Has an abdominal binder on. Medicated pain with Dilaudid *1 and scheduled Ofirmev. No nausea. Has been passing flatus, No BM this shift. Standby assist. vital signs stable. IV to the right AC infusing normal saline @150mls/hr. pleasant and cooperative with cares. Initialized on 05/04/19 02:48 - END OF NOTE
== END 2019-05-04 15:30 | disposition home or self-care (01) | DRG 329 ==
LOC: ED 14:20 → MEDSUR 14:20
PROVIDERS: ADMIT Family Medicine Adult Medicine; ATTEND Family Medicine Adult Medicine